=== PATIENT | female | born 1950 | race American Indian/Alaskan Native ===

== ENCOUNTER 2019-06-09 07:07 | Day surgery (SDC) | payer MEDICARE ==
[2019-06-09] MEDS ORDERED: ceFAZolin/Water 2 GM/20 ML 2 GM/20 ML SYRINGE IV NR (08:00)
[2019-06-09 08:05] LABS: INR 0.93 (0.87-1.13); Partial Thromboplastin Time 27.9 Sec. (24.2-36.6)
[2019-06-09 08:10] LABS: Alanine Aminotransferase 19 units/L (7-56); Albumin 3.8 g/dL (3.9-5); BUN/Creatinine Ratio 20; Blood Urea Nitrogen 16 mg/dL (7-17); Calcium 9.4 mg/dL (8.4-10.2); Hemolysis Index 2
[2019-06-09 09:12] LABS: Hematocrit 33.5 % (30.3-42.9); Hemoglobin 10.8 gm/dl (10.1-14.3); Mean Corpuscular Volume 88 fl (79-97); Red Blood Count 3.82 M/mm3 (3.65-5.03)
[2019-06-09 09:13] LABS: Basophils # (Auto) 0.1 K/mm3 (0.0-0.1); Basophils % (Auto) 0.4 % (0.0-1.8); Eosinophils # (Auto) 0.3 K/mm3 (0.0-0.4); Eosinophils % (Auto) 2.1 % (0.0-4.3); Lymphocytes # (Auto) 1.6 K/mm3 (1.2-5.4); Lymphocytes % (Auto) 10.8 % (13.4-35.0); Mean Corpuscular HGB Conc 32 % (30-34); Monocytes # (Auto) 0.9 K/mm3 (0.0-0.8); Monocytes % (Auto) 5.8 % (0.0-7.3); Platelet Count 261 K/mm3 (140-440); Red Cell Distribution Width 13.9 % (13.2-15.2)
[2019-06-09] MEDS ORDERED: HEPARIN/NS 5000 UNIT/500ML 1,000 ML IR ONE ×2 (09:15→13:13)
[2019-06-09] MEDS ORDERED: ceFAZolin/Water 2 GM/20 ML 2 GM/20 ML SYRINGE IV ONE (09:15)
[2019-06-09] MEDS ORDERED: SODIUM CHLORIDE 0.9% 500 ML 500 ML IV SCH (09:30)
[2019-06-09] MEDS: fentaNYL 100 MCG/2 ML INJ ONE ×6 (10:13→12:46)
[2019-06-09] MEDS: MIDAZOLAM 2 MG/2 ML INJ ONE ×6 (10:13→12:46)
[2019-06-09] MEDS: LIDOCAINE (2%) 20 MG/1 ML VIAL 20 ML MDV INFILTRATI ONE ×2 (10:18→11:07)
[2019-06-09] MEDS: HEPARIN 10,000 UNITS/10 ML VIAL ONE ×5 (10:55→13:30)
[2019-06-09] MEDS ORDERED: VERAPAMIL 5 MG/2 ML INJ ONE (12:19)
[2019-06-09] MEDS ORDERED: HEPARIN 10,000 UNITS/10 ML VIAL ONE (12:19)
[2019-06-09] MEDS ORDERED: NITROGLYCERIN SYRINGE 3 ML ONE (12:20)
[2019-06-09] MEDS ORDERED: SODIUM CHLORIDE 0.9% 100 ML ONE (12:50)
[2019-06-09] MEDS ORDERED: ALTEPLASE 2 MG INJ ONE (12:50)
[2019-06-09] MEDS ORDERED: HEPARIN/NS 5000 UNIT/500ML 500 ML IR ONE (12:56)
[2019-06-09] MEDS ORDERED: hydrALAZINE 20 MG/1 ML INJ ONE (13:15)
[2019-06-09] MEDS ORDERED: SODIUM CHLORIDE 0.9% 500 ML 500 ML ONE (13:19)
[2019-06-09] MEDS: ONDANSETRON 4 MG/2 ML INJ ONE ×2 (13:54→13:55)
[2019-06-09] MEDS ORDERED: HYDROcodone/ACETAMINOPHEN 5-325 MG TAB PO PRN (16:03)
[2019-06-09] MEDS ORDERED: ONDANSETRON 4 MG/2 ML INJ IV PRN (16:03)
[2019-06-09] MEDS ORDERED: APIXABAN 2.5 MG TAB PO SCH (16:05)
--- NOTE | 2019-06-09 16:12 | Short Stay Summary ---
Short Stay Documentation Date of service: 06/09/19 Narrative H&P: See H&P - History H&P: obtained from office - Allergies and Medications Current Medications: Allergies No Known Allergies Allergy (Unverified 06/08/19 14:39) Home Medications Medication Instructions Recorded Confirmed Last Taken Type Aspirin [Adult Low Dose Aspirin EC] 81 mg PO QDAY 04/08/16 06/09/19 06/07/19 History Gabapentin 300 mg PO TID 04/08/16 06/08/19 06/08/19 History Latanoprost 1 drop OU QHS 04/08/16 06/08/19 06/08/19 History glipiZIDE [glipiZIDE XL] 10 mg PO QDAY 04/08/16 06/08/19 06/08/19 History Losartan [Cozaar] 100 mg PO HS #30 tablet 04/24/16 06/08/19 06/08/19 Rx Atorvastatin Calcium [Lipitor] 80 mg PO QHS 06/08/19 06/08/19 06/08/19 History Brimonidine 0.15% [Alphagan P 1 drops OU DAILY 06/08/19 06/08/19 06/08/19 History 0.15%] Metformin HCl [Metformin HCl ER] 500 mg PO BID 06/08/19 06/09/19 06/07/19 History tiZANidine [Zanaflex 4mg TAB] 4 mg PO DAILY 06/08/19 06/08/19 06/08/19 History traMADol [Ultram 50 MG tab] 50 mg PO Q4H PRN 06/08/19 06/08/19 06/08/19 History Active Medications Acetaminophen/Hydrocodone Bitart ([place] 5/325) 1 each PO Q4H PRN PRN Reason: Pain, Moderate (4-6) Apixaban (Eliquis) 2.5 mg PO Q12HR TIMOTHY; Protocol Cefazolin Sodium (Ancef/Sterile Water 2 Gm/20 Ml) 2 gm in 20 mls @ 80 mls/hr IV PREOP NR; Protocol Stop: 06/09/19 23:00 Sodium Chloride (Nacl 0.9% 500 Ml) 500 mls @ 50 mls/hr IV DIRECT TIMOTHY Ondansetron HCl (Zofran) 4 mg IV Q8H PRN PRN Reason: Nausea And Vomiting - Brief post op/procedure progress note Date of procedure: 06/09/19 Pre-op diagnosis: 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 Ultrasound-Guided Access Right Common Femoral Artery 2. Ultrasound-Guided Access Left Radial Artery 3. Percutaneous Pharmaco-Mechanical Thrombectomy Of Left Common Iliac Artery with AngioJet With Pulse [place] of 20 Mg of TPA and Aspiration 4. Percutaneous Pharmaco-Mechanical Thrombectomy Of Left External Iliac Artery with AngioJet With Pulse [place] of 20 Mg of TPA and Aspiration 5. Percutaneous Pharmaco-Mechanical Thrombectomy Of Left Common Femoral Artery with AngioJet With Pulse [place] of 20 Mg of TPA and Aspiration 6. Angioplasty of Left External Iliac Artery with 5 x 220 Darryl Balloon 7. Angioplasty and Stent of Left Common Iliac Artery with 8 x 37 and (2) 8 x 27 Visipro Balloon Expandable Stents 8. Closure of Right Femoral Arteriotomy with 6 [place] Angio-Seal 9. Radiologic Supervision with Interpretation Anesthesia: local, other (Monitored Moderate Sedation) Surgeon: SMILEY SYKES Estimated blood loss: minimal Pathology: none Condition: stable - Disposition Condition at discharge: Good Disposition: DC-01 TO HOME OR SELFCARE Short Stay Discharge Plan Activity: no restrictions Wound: remove dressing (24 hours) Follow up with: SMILEY SYKES MD [Staff Physician] - 14 Days Prescriptions: Apixaban [Eliquis] 0 mg PO BID #60 tablet HYDROcodone/APAP 7.5-325 [[place] 7.5/325] 1 each PO Q6HR PRN #20 tablet PRN Reason: Pain
[2019-06-09] MEDS ORDERED: MORPHINE 2 MG/1 ML INJ IV ONE (16:18)
[2019-06-09] MEDS ORDERED: MORPHINE 2 MG/1 ML INJ ONE (16:19)
--- NOTE | 2019-06-09 16:24 | Operative Report ---
Operative Report Operative Report: Date of Procedure: 06/09/2019 Pre-operative Diagnosis: Thrombosis of Left Iliac Artery with Left Above-Knee A mputation Rest Pain Post-operative Diagnosis: Same Procedure(s): 1. Ultrasound-Guided Access Right Common Femoral Artery 2. Ultrasound-Guided Access Left Radial Artery 3. Percutaneous Pharmaco-Mechanical Thrombectomy Of Left Common Iliac Artery with AngioJet With Pulse [place] of 20 Mg of TPA and Aspiration 4. Percutaneous Pharmaco-Mechanical Thrombectomy Of Left External Iliac Artery with AngioJet With Pulse [place] of 20 Mg of TPA and Aspiration 5. Percutaneous Pharmaco-Mechanical Thrombectomy Of Left Common Femoral Artery with AngioJet With Pulse [place] of 20 Mg of TPA and Aspiration 6. Angioplasty of Left External Iliac Artery with 5 x 220 Darryl Balloon 7. Angioplasty and Stent of Left Common Iliac Artery with 8 x 37 and (2) 8 x 27 Visipro Balloon Expandable Stents 8. Closure of Right Femoral Arteriotomy with 6 [place] Angio-Seal 9. Radiologic Supervision with Interpretation Surgeon: John Trivedi M.D. Material Reprocessing Associate: None Anesthesia: Local and IV Sedation EBL: Minimal Counts: Correct Complications: None Condition: Stable Specimen: None Indication: The patient is a 69-year-old female with a history of peripheral vascular disease and bilateral above-knee amputations who had a left common iliac artery to left profunda artery bypass performed at an outside facility. The bypass thrombosed and the thrombus propagated up to her common iliac artery occluding the common iliac artery as well as the hypogastric and the external iliac artery. She developed severe left stump rest pain and is in need of intervention to improve flow to the stump. She was given the risks, benefits, and alternative procedures and consented to the procedure. Angiographic Findings: The left common iliac had a small stump of flow. There was no reconstitution of flow noted in the iliac system. The left common femoral artery was chronically occluded and there was no reconstitution flow noted in the profunda artery. After intervention the left common iliac artery was patent with approximately 20% residual stenosis. There was thrombus noted to have herniated up into the aorta just above the left common iliac artery. The left hypogastric artery was patent with a significant amount of residual thrombus however there was collateral flow that filled the profunda artery branches that had previously been used as the outflow for the bypass. Description of Procedure: The patient was brought to the laborer pipelines and laid in supine position. After a timeout was performed her right groin was prepped and draped in normal sterile fashion. Ultrasound was used to identify the right common femoral artery and confirmed patency. Once patency was confirmed the overlying skin and soft tissue was anesthetized with lidocaine. A small stab incision was created with an 11 blade and micropuncture technique was used with ultrasound guidance to the right common femoral artery. I was unable to exchange the micropuncture sheath for a 5 [place] sheath so I placed a 0.018 V18 wire and then placed a 5/6 Terumo Sheath and then advanced an Omni flush catheter and Bentson wire into the aorta. I performed an aortogram demonstrating the occluded left common iliac artery. I attempted with a combination of multiple catheters and wires to cannulate and cross the occluded iliac without success so I decided to attempt to access her previous bypasses in her left thigh. I attempted to use ultrasound to access the patient's occluded femoropopliteal bypass graft without success. I also attempted to access with ultrasound guidance her previous SFA stents in hopes of advancing wires retrograde through the common femoral artery to rebuild her common femoral artery and also this was unsuccessful. Since the retrograde attempt was unsuccessful I decided to access her left radial artery in hopes of crossing the occluded iliac in an antegrade approach. The left wrist was then prepped and draped in normal sterile fashion ultrasound was used to identify the left radial artery and confirmed patency. The overlying skin and soft tissue was then anesthetized with lidocaine and micropuncture technique was used access the radial artery. A 6 [place] sheath was then placed by Seldinger technique. A glide catheter and 0.035 advantage wire were used to cannulate the descending aorta and advanced into the abdominal aorta. The left common iliac artery was cannulated in the catheter and wire were advanced through the occluded left common iliac artery and into the occluded left common femoral artery. This was confirmed with arteriogram. I exchanged the advantage wire for the V 18 wire and then performed angioplasty of the left external iliac artery and common iliac artery with a 5 x 220 balloon. After performing angioplasty I used the Omni Flush catheter and a 0.035 stiff Glidewire, from the right common femoral approach to advance up and over the bifurcation and advanced the catheter and wire into the right common femoral artery. I then exchanged my sheath for a 6 [place] 45 cm destination sheath. I then used a AngioJet catheter with 100 mL of heparinized saline and 20 mg of TPA to lace the left common iliac, external iliac, and common femoral artery with the solution and allowed it to dwell for 25 minutes. After 25 minutes I performed percutaneous mechanical thrombectomy with the AngioJet catheter. The follow-up angiogram revealed that the common iliac artery was patent with approximately 60% stenosis but minimal residual thrombus. There was significant thrombus within the hypogastric however there was obvious collateral flow into the profunda branches supplying the thigh. There was flow into the external iliac artery and common femoral artery however they did not appear to have a clear connection with the profunda artery. I decided that the best treatment option was to treat the common iliac artery and placed the patient on anticoagulation hopes of optimizing the flow into the hypogastric artery which was providing collateral flow into the profunda artery. I used a 8 x 37 followed by (2) 8 x 27 Visipro Balloon Expandable Stents to treat the entire left common iliac artery with a result of less than 20% residual stenosis. There was an obvious thrombus plug that herniated out of the common iliac artery into the distal aorta just above the left common iliac artery however the patient was nauseated and vomiting at this time and I felt t hat it was safer to abort the procedure and place her on anticoagulation rather than continue trying to [place] the thrombus. I advanced the wire into the aorta and used a 6 [place] Angio-Seal for closure of the right femoral arteriotomy after removing the destination sheath. The patient tolerated the procedure well and was transported to the recovery area in stable condition.
[2019-06-09 17:38] VITALS: BP 152/56
== END 2019-06-09 19:00 | disposition home or self-care (01) ==
LOC: CATHLABREC 07:07
PROVIDERS: ATTEND Surgery Vascular Surgery
DX: I74.5 Embolism and thrombosis of iliac artery (principal); E11.51 Type 2 diabetes mellitus with diabetic peripheral angiopathy without gangrene; I70.213 Atherosclerosis of native arteries of extremities with intermittent claudication, bilateral legs; I10 Essential (primary) hypertension; F32.9 Major depressive disorder, single episode, unspecified; I25.10 Atherosclerotic heart disease of native coronary artery without angina pectoris; E78.00 Pure hypercholesterolemia, unspecified; K21.9 Gastro-esophageal reflux disease without esophagitis; M19.90 Unspecified osteoarthritis, unspecified site; F41.9 Anxiety disorder, unspecified; Z85.3 Personal history of malignant neoplasm of breast; Z90.11 Acquired absence of right breast and nipple; Z83.3 Family history of diabetes mellitus; Z98.890 Other specified postprocedural states; Z98.42 Cataract extraction status, left eye; Z79.899 Other long term (current) drug therapy; Z79.82 Long term (current) use of aspirin; Z79.84 Long term (current) use of oral hypoglycemic drugs; Z87.891 Personal history of nicotine dependence; Z95.820 Peripheral vascular angioplasty status with implants and grafts; Z89.611 Acquired absence of right leg above knee; Z89.612 Acquired absence of left leg above knee; Z82.49 Family history of ischemic heart disease and other diseases of the circulatory system
CPT/HCPCS: 36415; 37184; 37185; 37221; 76937; 80053; 82962; 85025; 85610; 85730; 96374; 99156; 99157; C1725; C1757; C1760; C1769; C1876; C1887; C1894; J0360; J0690; J1644; J2250; J2270; J2405; J2997; J3010; J7040; 37220; 37226; Q9967

== ENCOUNTER 2019-06-09 23:00 | Inpatient (IN) | payer MEDICARE ==
[2019-06-09] MEDS ORDERED: ONDANSETRON 4 MG/2 ML INJ IV ONE (23:29)
[2019-06-09] MEDS ORDERED: HYDROmorphone 1 MG/1 ML INJ IV ONE (23:29)
--- NOTE | 2019-06-09 23:38 | Emergency Department Report ---
ED Extremity Problem HPI - General Chief complaint: Medical Clearance Stated complaint: PAIN IN LEGS Time Seen by Provider: 06/09/19 23:17 Source: patient, EMS Mode of arrival: Stretcher Limitations: Physical Limitation - History of Present Illness Initial comments: 69-year-old female with a past medical history of PAD and bilateral BKA presents to the hospital complaining of pain left leg. Patient was here earlier today for outpatient vascular procedure. She had a preop diagnosis acute thrombosis of the left iliac arteries with left AKA stump pain. She received mechanical thrombectomy and angioplasty with stents of the left common iliac and external iliac arteries. Right femoral artery was cannulated procedure. Patient was discharged at 5 PM. At 6 PM started to complain of severe pain deep in the left leg. She has not yet filled her described [place] 7.5 mg for pain. Vascular: Dr Trivedi Severity scale (0 -10): 8 - Related Data Home Medications Medication Instructions Recorded Confirmed Last Taken Aspirin [Adult Low Dose Aspirin EC] 81 mg PO QDAY 04/08/16 06/09/19 06/07/19 Gabapentin 300 mg PO TID 04/08/16 06/08/19 06/08/19 Latanoprost 1 drop OU QHS 04/08/16 06/08/19 06/08/19 glipiZIDE [glipiZIDE XL] 10 mg PO QDAY 04/08/16 06/08/19 06/08/19 Atorvastatin Calcium [Lipitor] 80 mg PO QHS 06/08/19 06/08/19 06/08/19 Brimonidine 0.15% [Alphagan P 1 drops OU DAILY 06/08/19 06/08/19 06/08/19 0.15%] Metformin HCl [Metformin HCl ER] 500 mg PO BID 06/08/19 06/09/19 06/07/19 tiZANidine [Zanaflex 4mg TAB] 4 mg PO DAILY 06/08/19 06/08/19 06/08/19 traMADol [Ultram 50 MG tab] 50 mg PO Q4H PRN 06/08/19 06/08/19 06/08/19 Previous Rx's Medication Instructions Recorded Last Taken Type Losartan [Cozaar] 100 mg PO HS #30 tablet 04/24/16 06/08/19 Rx Apixaban [Eliquis] 0 mg PO BID #60 tablet 06/09/19 Unknown Rx HYDROcodone/APAP 7.5-325 [[place] 1 each PO Q6HR PRN #20 tablet 06/09/19 Unknown Rx 7.5/325] Allergies Allergy/AdvReac Type Severity Reaction Status Date / Time No Known Allergies Allergy Unverified 06/08/19 14:39 ED Review of Systems ROS: Stated complaint: PAIN IN LEGS Other details as noted in HPI Comment: All other systems reviewed and negative ED Past Medical Hx - Past Medical History Hx Hypertension: Yes Hx Heart Attack/AMI: No Hx Diabetes: Yes Hx Arthritis: Yes Hx HIV: No - Surgical History Hx Coronary Stent: No Hx Open Heart Surgery: No Hx Pacemaker: No Hx Cholecystectomy: No Hx Appendectomy: No Hx Breast Surgery: No Additional Surgical History: left a.b.a - Social History Smoking Status: Former Smoker - Medications Home Medications: Home Medications Medication Instructions Recorded Confirmed Last Taken Type Aspirin [Adult Low Dose Aspirin EC] 81 mg PO QDAY 04/08/16 06/09/19 06/07/19 History Gabapentin 300 mg PO TID 04/08/16 06/08/19 06/08/19 History Latanoprost 1 drop OU QHS 04/08/16 06/08/19 06/08/19 History glipiZIDE [glipiZIDE XL] 10 mg PO QDAY 04/08/16 06/08/19 06/08/19 History Losartan [Cozaar] 100 mg PO HS #30 tablet 04/24/16 06/08/19 06/08/19 Rx Atorvastatin Calcium [Lipitor] 80 mg PO QHS 06/08/19 06/08/19 06/08/19 History Brimonidine 0.15% [Alphagan P 1 drops OU DAILY 06/08/19 06/08/19 06/08/19 History 0.15%] Metformin HCl [Metformin HCl ER] 500 mg PO BID 06/08/19 06/09/19 06/07/19 History tiZANidine [Zanaflex 4mg TAB] 4 mg PO DAILY 06/08/19 06/08/19 06/08/19 History traMADol [Ultram 50 MG tab] 50 mg PO Q4H PRN 06/08/19 06/08/19 06/08/19 History Apixaban [Eliquis] 0 mg PO BID #60 tablet 06/09/19 Unknown Rx HYDROcodone/APAP 7.5-325 [[place] 1 each PO Q6HR PRN #20 tablet 06/09/19 Unknown Rx 7.5/325] ED Physical Exam - General Limitations: Physical Limitation - Other Other exam information: General: Distress secondary to pain difficult to obtain a history of present illness Head: Atraumatic Eyes: normal appearance ENT: Moist mucous membranes Neck: Normal appearance, no midline tenderness Chest: Clear to auscultation bilaterally CV: Regular rate and rhythm, able to auscultate left femoral pulse, faintly palpable Abdomen: Soft, normal bowel sounds, nontender, nondistended, no rebound or guarding Back: Normal inspection Extremity: Bilateral AKA. Left leg dressing removed. Blood clotted dressing noted without active bleeding. Neuro: Alert O x 3, no facial asymmetry, speech clear, no gross motor sensory deficit Psych: Appropriate behavior Skin: No rash ED Course Vital Signs 06/09/19 06/09/19 06/09/19 23:19 23:22 23:44 Temperature Pulse Rate 94 H 89 Respiratory 15 17 Rate Blood Pressure 165/65 Blood Pressure 165/65 [Right] O2 Sat by Pulse 95 98 Oximetry 06/10/19 06/10/19 06/10/19 00:12 02:11 03:48 Temperature 97.8 F Pulse Rate 83 90 88 Respiratory 19 18 15 Rate Blood Pressure Blood Pressure 197/69 203/57 160/46 [Right] O2 Sat by Pulse 100 97 97 Oximetry - Reevaluation(s) Reevaluation #1: 06/10/19 04:45 Is resting comfortably after receiving Dilaudid. Blood pressure also improved with labetalol. - Consultations Consultation #1: 06/10/19 04:[address] Garcia. He recommends admitting the patient. Recommends heparin drip. Nothing by mouth except for meds. They will assess patient today with possible procedure tomorrow. ED Medical Decision Making - Lab Data Result diagrams: 06/09/19 23:31 06/09/19 23:31 - Radiology Data Radiology results: report reviewed CTA PELVIS AND LEFT LOWER EXTREMITY WITH IV CONTRAST INDICATION: Postop left lower extremity angioplasty CONTRAST: 100 cc Omnipaque 350 IV COMPARISON: None available. Three-plane MIP reconstructions were produced. All CT scans at this location are performed using CT dose reduction for ALARA by means of automated exposure control. FINDINGS: Images were obtained from the mid abdominal level to the mid to lower thigh level but exclude the right abdomen and pelvis. Above the knee amputation is noted. Small probable cysts are seen in the left kidney. Left kidney appears moderately atrophic. Only a small portion of the right kidney is seen but there appears to be compensatory hypertrophy. Large amount of stool is seen in the rectum consistent with rectal impaction. No proximal obstructive change is seen. Old left lower quadrant ostomy sites are noted. No free fluid is seen. Calcified uterine leiomyoma is seen. No lymphadenopathy is noted. No intrapelvic inflammatory changes are seen. No free fluid is seen within the pelvis. Moderate stranding is seen in the left inguinal area extending inferiorly probably related to recent procedure but I do not see a defined hematoma. No evidence of hemorrhage within the pelvis is seen. Atherosclerotic changes are seen in the visualized portions of the abdominal aorta without aneurysmal dilatation, significant aortic stenosis, or evidence of dissection. Superior mesenteric artery opacifies well without obvious stenosis. Renal arteries show no obvious stenoses with only mild atherosclerotic change. A small inferior mesenteric artery opacifies. The proximal to mid portions of the right common iliac arteries show atherosclerotic changes without significant stenosis or aneurysmal dilatation. A distal right common iliac stent graft is noted with flow seen. Opacification of the right internal iliac artery is noted. There appears to be significant stenosis of the right external iliac artery at approximately 50-60% but flow is seen distally in the visualized portions with only mild irregularity more distally. A left common iliac stent graft is noted. The extreme proximal portions of this graft show only a trace of flow over a segment of approximately 12 mm but then the graft is well opacified. Flow is seen well in the internal iliac system on the left. The [place] left external iliac artery shows prominent in length the stenosis with multiple areas of sev ere narrowing and one area in the upper to midportion without discernible flow for a short segment. A bypass graft is noted extending from the distal portion of the common iliac stent graft which shows moderate amount of flow but also in the distal portion of the external iliac segment shows prominent length the stenosis of approximately 80%. In the common femoral region another stent graft is seen which shows no discernible flow and this continues to the distal portion of the thigh without obvious flow seen. A vein graft is seen running laterally also does not show definite flow. Branches of the deep femoral artery do show opacification to the distal thigh. I do not see obvious extravasation. IMPRESSION: 1. Probable thrombus is seen in the upper portion of the left common iliac stent graft though flow is seen well just beyond this area 2. Marked abnormality is seen of the [place] left external iliac artery though flow is seen distally. 3. The left external iliac bypass shows flow but prominent length the stenosis/thrombosis 4. The lateral I vein graft shows no definite flow 5. Left s uperficial femoral artery stent graft shows no obvious flow 6. Flow is seen in branches of the deep femoral artery to the distal thigh soft tissues 7. No obvious extravasation of contrast is seen and no obvious pseudoaneurysm is noted 8. Stenotic abnormalities in the right iliac system as above - Medical Decision Making CTA reviewed by vascular surgeon. Admission recommended and heparin drip. Case discussed with hospitalist. Pain improved after Dilaudid. Hypertension improved after labetalol by mouth. MIld hyperglycemia persist despite insulin. Pt hydrated with 500 mL of normal saline given mild increase in creatinine. - Differential Diagnosis postop hematoma, postop pain, graft or arterial occlusion Critical Care Time: No Critical care attestation.: If time is entered above; I have spent that time in minutes in the direct care of this critically ill patient, excluding procedure time. ED Disposition Clinical Impression: Atherosclerosis of [place] arteries of the extremities with rest pain, S/P AKA (above knee amputation) bilateral, Iliac artery thrombosis, left, S/P peripheral artery angioplasty with stent placement, Intractable pain, Increase in serum creatinine from prior measurement Disposition: OP ADMIT IP TO THIS HOSP Is pt being admited?: Yes Condition: Stable Time of Disposition: 04:48 (Dr Burleson/hosp)
[2019-06-09 23:47] LABS: Basophils # (Auto) 0.1 K/mm3 (0.0-0.1); Basophils % (Auto) 0.3 % (0.0-1.8); Hematocrit 25.1 % (30.3-42.9); Hemoglobin 8.5 gm/dl (10.1-14.3); Lymphocytes # (Auto) 1.5 K/mm3 (1.2-5.4); Lymphocytes % (Auto) 8.8 % (13.4-35.0); Mean Corpuscular HGB Conc 34 % (30-34); Mean Corpuscular Volume 87 fl (79-97); Monocytes # (Auto) 0.9 K/mm3 (0.0-0.8); Monocytes % (Auto) 5.4 % (0.0-7.3); Platelet Count 282 K/mm3 (140-440); Red Blood Count 2.87 M/mm3 (3.65-5.03)
[2019-06-10 00:02] LABS: INR 1.19 (0.87-1.13); Partial Thromboplastin Time 35.9 Sec. (24.2-36.6)
[2019-06-10 00:10] LABS: Calcium 9.1 mg/dL (8.4-10.2)
[2019-06-10] MEDS ORDERED: INSULIN REGULAR, HUMAN 100 UNITS/1 ML IV ONE (00:34)
[2019-06-10] MEDS ORDERED: SODIUM CHLORIDE 0.9% 500 ML 500 ML IV ONE (01:00)
[2019-06-10] MEDS ORDERED: LABETALOL 100 MG TAB PO ONE (02:14)
--- NOTE | 2019-06-10 03:50 | Cat Scan Report ---
CTA PELVIS AND LEFT LOWER EXTREMITY WITH IV CONTRAST INDICATION: Postop left lower extremity angioplasty CONTRAST: 100 cc Omnipaque 350 IV COMPARISON: None available. Three-plane MIP reconstructions were produced. All CT scans at this location are performed using CT d ose reduction for 3D Product Imaging by means of automated exposure control. FINDINGS: Images were obtained from the mid abdominal level to the mid to lower thigh level but exclu de the right abdomen and pelvis. Above the knee amputation is noted. Small probable cysts are seen in the left kidney. Left kidney appears moderately atrophic. Only a sma ll portion of the right kidney is seen but there appears to be compensatory hypertrophy. Large amount of stool is seen in the rectum consistent with rectal impaction. No proximal obstructive change is s een. Old left lower quadrant ostomy sites are noted. No free fluid is seen. Calcified uterine leiomyo ma is seen. No lymphadenopathy is noted. No intrapelvic inflammatory changes are seen. No free fluid is seen within the pelvis. Moderate stranding is seen in the left inguinal area extending inferiorly probably related to recent procedure but I do not see a defined hematoma. No evidence of hemorrhage w ithin the pelvis is seen. Atherosclerotic changes are seen in the visualized portions of the abdominal aorta without aneurysmal dilatation, significant aortic stenosis, or evidence of dissection. Superior mesenteric artery opaci fies well without obvious stenosis. Renal arteries show no obvious stenoses with only mild atheroscle rotic change. A small inferior mesenteric artery opacifies. The proximal to mid portions of the right common iliac arteries show atherosclerotic changes without significant stenosis or aneurysmal dilatation. A distal right common iliac stent graft is noted with flow seen. Opacification of the right internal iliac artery is noted. There appears to be significant stenosis of the right external iliac artery at approximately 50-60% but flow is seen distally in the visualized portions with only mild irregularity more distally. A left common iliac stent graft is noted. The extreme proximal portions of this graft show only a tra ce of flow over a segment of approximately 12 mm but then the graft is well opacified. Flow is seen w ell in the internal iliac system on the left. [place] left external iliac artery shows prominent i n length the stenosis with multiple areas of severe narrowing and one area in the upper to midportion without discernible flow for a short segment. A bypass graft is noted extending from the distal port ion of the common iliac stent graft which shows moderate amount of flow but also in the distal portio n of the external iliac segment shows prominent length the stenosis of approximately 80%. In the comm on femoral region another stent graft is seen which shows no discernible flow and this continues to t he distal portion of the thigh without obvious flow seen. A vein graft is seen running laterally also does not show definite flow. Branches of the deep femoral artery do show opacification to the distal thigh. I do not see obvious extravasation. IMPRESSION: 1. Probable thrombus is seen in the upper portion of the left common iliac stent graft though flow is seen well just beyond this area 2. Marked abnormality is seen of the [place] left external iliac artery though flow is seen distally. 3. The left external iliac bypass shows flow but prominent length the stenosis/thrombosis 4. The lateral I vein graft shows no definite flow 5. Left superficial femoral artery stent graft shows no obvious flow 6. Flow is seen in branches of the deep femoral artery to the distal thigh soft tissues 7. No obvious extravasation of contrast is seen and no obvious pseudoaneurysm is noted 8. Stenotic abnormalities in the right iliac system as above Signer Name: Laci Cosme MD Signed: 06/10/2019 3:45 AM Workstation Name: [id number]
--- NOTE | 2019-06-10 04:46 | Event Note ---
Date: 06/10/[address] Andino about Danisha Miranda. 69 year old female who underwent thrombectomy of the left lower extremity iliac arterial system earlier today who was discharged but then represented in 05/20 pain left stump pain (AKA). CTA angiogram was performed by the ER which demonstrated occlusion of the left proximal common iliac artery with occlusion of the left femoral system and occlusion of the left lower extremity bypass. The bypass and femoral system was chronically occluded and the left iliac system had minimal flow previously, rec ently spontaneously occluded, the patient had a thrombectomy of the iliac system earlier today. At the conclusion of the procedure the left proximal iliac artery was patent, but it is now occluded. There is definitely a chronic component to this pain. The patient may need to be admitted for pain control and I recommend initiation of a heparin drip. May consider another attempt at iliac thrombectomy of the left iliac system, but this may be futile. Since patient has had multiple contrast boluses, she will need hydration to monitor for KATHERINE. Will reassess in AM.
[2019-06-10] MEDS ORDERED: HEPARIN 10,000 UNITS/10 ML VIAL IV ONE (04:52)
[2019-06-10] MEDS ORDERED: HEPARIN/ 0.45% NACL DRIP 25,000 UNIT/500 ML BAG IV SCH (05:00)
[2019-06-10] MEDS ORDERED: ONDANSETRON 4 MG/2 ML INJ IV PRN (05:41)
[2019-06-10] MEDS ORDERED: ACETAMINOPHEN 650 MG RECT SUPP PR PRN (05:42)
[2019-06-10] MEDS ORDERED: DEXTROSE 50% IN WATER (25GM) 50 ML SYRINGE IV PRN (05:44)
[2019-06-10] MEDS: INSULIN REGULAR, HUMAN 100 UNITS/1 ML SUB-Q SCH ×4 (06:56→18:05)
[2019-06-10] MEDS: HYDROmorphone 1 MG/1 ML INJ IV PRN ×2 (06:59→11:43)
--- NOTE | 2019-06-10 08:49 | Event Note ---
Date: 06/10/19 Obtain STAT labs to evaluate renal function, considering contrast. If worse will need renal consult. Bolus of fluids Sodium bicarb considering Metabolic acidosis Insulin administration discussed with Nursing
--- NOTE | 2019-06-10 09:40 | History and Physical Report ---
CHIEF COMPLAINT: Pain in the left lower extremity. HISTORY OF PRESENTING ILLNESS: The patient is a 69-year-old female who had a procedure done in the left lower extremity about 24-48 hours ago in this hospital, patient had a stent placed by the [facility] and was discharged home, but came back with increased pain in the left lower extremity. There was no history of trauma, and the patient denied history of nausea or vomiting and denied history of fever and presented to the Emergency Room and had a CT angiogram of the lower extremity done that shows evidence of thrombosis in the left lower extremity around where the procedure was done. [facility] was consulted and they requested that the patient be admitted and kept n.p.o. and be placed on heparin drip, pending evaluation. PAST MEDICAL HISTORY: Pertinent for hypertension, diabetes mellitus, arthritis. PAST SURGICAL HISTORY: Pertinent for left above-knee amputation. FAMILY HISTORY: Noncontributory. SOCIAL HISTORY: The patient is a former cigarette smoker. Does not smoke anymore and does not use illicit drug. MEDICATIONS: The patient is on aspirin 81 mg by mouth daily, gabapentin 300 mg by mouth t.i.d., latanoprost eyedrop 1 drop to the right eye every night, glipizide 10 mg by mouth daily, Cozaar 100 mg by mouth at bedtime, Lipitor 80 mg by mouth at bedtime, Alphagan eyedrops 0.15% 1 drop to the right eye daily, metformin 500 mg by mouth twice daily, Zanaflex 4 mg by mouth daily, Ultram 50 mg by mouth every 4 hours as needed for pain, Eliquis twice daily, dose unknown and [place] 7.5/325 mg 1 by mouth every 6 hours as needed for pain. ALLERGIES: There are no known drug allergies. REVIEW OF SYSTEMS: CONSTITUTIONAL: There is no fever, no chills, no diaphoresis. HEENT: There is no headache or sore throat. CARDIOVASCULAR SYSTEM: There is no chest pain or orthopnea. RESPIRATORY SYSTEM: There is no shortness of breath or cough. GASTROINTESTINAL SYSTEM: There is no nausea, no vomiting, no abdominal pain, diarrhea or constipation. NEUROLOGICAL SYSTEM: There is no numbness, no dizziness, no altered mental status. MUSCULOSKELETAL SYSTEM: There is pain in the left lower extremity, but no joint swelling. DERMATOLOGICAL SYSTEM: There is no skin rash or itching. GENITOURINARY SYSTEM: There is no dysuria, hematuria, or flank pain. Rest of system review is normal. PHYSICAL EXAMINATION: GENERAL: At the time of exam, the patient was found to be lethargic, but arousable and not in acute distress. VITAL SIGNS: At the initial time of presentation show normal temperature with pulse of 94, respirations 15, blood pressure 105/65, O2 sat of 95% on room air. HEENT: Showed pupils to be equal, round, reactive to light and accommodating. Extraocular muscles are intact. NECK: Supple with no JVD or carotid bruit. CARDIOVASCULAR SYSTEM: Showed normal first and second heart sounds with no gallops or murmurs. RESPIRATORY SYSTEM: Showed good air entry on both sides of the lungs with no abnormal breath sounds. GASTROINTESTINAL SYSTEM: Showed abdomen to be full, soft, nontender with no organomegaly or rigidity. NEUROLOGIC: Showed no focal deficit. MUSCULOSKELETAL SYSTEM: Showed that the patient had bilateral above-knee amputation with a procedure done on the left lower extremity and dressing still applied to the left lower extremity where the procedure was done. DERMATOLOGICAL SYSTEM: Showed no skin rash. GENITOURINARY SYSTEM: Showed no costovertebral angle tenderness. PERTINENT LABORATORY AND IMAGING STUDIES: The patient had CT angiogram of the lower extremity done, which shows a probable thrombus in the upper portion of the left common iliac stent graft, although flow is seen just beyond this area according to the radiologist. There is also marked abnormality seen of the [place] left external iliac artery, although flow is seen distally. Also, the radiologist reported the left external iliac bypass showing flow, but prominent length of stenosis and thrombosis. Also, the radiologist said the ____ vein graft shows no definite flow and there is also left superficial femoral artery stent graft showing no obvious flow, and there is no obvious extravasation of contrast seen and no obvious pseudoaneurysm noted. There is stenotic abnormality in the right iliac system, according to the radiologist. Lab results, the patient has CBC done with elevated white count of 17,500, low hemoglobin of 8.5 and low hematocrit of 25.1 with CBC differential showing elevated segmented neutrophil count of 85.5. The patient's coagulation studies were unremarkable. Chemistry showed elevated BUN of 24 and slightly elevated creatinine of 1.3 with high blood glucose level of 323. DIAGNOSES: 1. Left lower extremity thrombus. 2. Left lower extremity pain. 3. Hyperglycemia. PLAN OF CARE: 1. The patient will be admitted to medical/surgical amor. 2. The patient will continue vascular surgical consult with Dr. Popeye Garcia as requested by the Emergency Room physician. 3. The patient will continue IV heparin drip started in the Emergency Room. 4. The patient will be n.p.o. until reviewed by the vascular surgeon. 5. The patient will be on Tylenol 650 mg rectally every 4 hours for fever and headache. 6. The patient will be on IV Dilaudid 1 mg every 4 hours as needed for pain and IV Zofran 4 mg every 8 hours as needed for nausea and vomiting. 7. The patient will be on Accu-Chek every 4 hours followed by low-dose sliding scale using regular insulin coverage. JOB# [id number] OCN/AISHA MTDD
--- NOTE | 2019-06-10 10:13 | Post Operative Note ---
Pre-op diagnosis: ESRD Post-op diagnosis: same Procedure: Left Arm AV Graft Insertion Anesthesia: GETA Surgeon: EVELIN GRANADO Estimated blood loss: other (25ml) Pathology: none Condition: stable Disposition: PACU
[2019-06-10] MEDS ORDERED: SODIUM CHLORIDE 0.9% 1000 ML 1,000 ML IV ONE ×2 (10:30→15:26)
[2019-06-10] MEDS ORDERED: SODIUM BICARB 8.4% 50 MEQ/50 ML SYRINGE IV NR (10:30)
--- NOTE | 2019-06-10 10:33 | Consultation ---
History of Present Illness - Reason for Consult Consult date: 06/10/19 peripheral vascular disease with rest pain - History of Present Illness Patient with a history of bilateral [id number]-[id number] amputations. Yesterday, the patient underwent a percutaneous procedure to open up the left system requiring access from both the right groin, left groin and left wrist. The patient had in-line flow to her profunda at the conclusion of the procedure. Upon discharge, the patient began to experience significant pain along the medial aspect of her left leg at the puncture site. Patient does have subcutaneous bruising. The patient's distal stump demonstrates no rest pain. Since presentation to the hospital, the patient's pain has resolved immediately. CTA was performed which demonstrates a thrombus in the proximal end of the left common iliac artery stent. There is bloodflow distal to this area which extends into branches in the profunda. Minimal amount of fluid is present within the s oft tissues in the left groin. Past History Past Medical History: PVD Past Surgical History: Other (bilateral [id number] amputations, left iliac artery to profunda bypass graft) Social history: no significant social history, lives with family Family history: no significant family history Medications and Allergies Allergies Allergy/AdvReac Type Severity Reaction Status Date / Time No Known Allergies Allergy Unverified 06/08/19 14:39 Home Medications Medication Instructions Recorded Confirmed Last Taken Type Aspirin [Adult Low Dose Aspirin EC] 81 mg PO QDAY 04/08/16 06/10/19 06/07/19 History Gabapentin 300 mg PO TID 04/08/16 06/10/19 06/08/19 History Latanoprost 1 drop OU QHS 04/08/16 06/10/19 06/08/19 History glipiZIDE [glipiZIDE XL] 10 mg PO QDAY 04/08/16 06/10/19 06/08/19 History Losartan [Cozaar] 100 mg PO HS #30 tablet 04/24/16 06/10/19 06/08/19 Rx Atorvastatin Calcium [Lipitor] 80 mg PO QHS 06/08/19 06/10/19 06/08/19 History Brimonidine 0.15% [Alphagan P 1 drops OU DAILY 06/08/19 06/10/19 06/08/19 History 0.15%] Metformin HCl [Metformin HCl ER] 500 mg PO BID 06/08/19 06/10/19 06/07/19 History tiZANidine [Zanaflex 4mg TAB] 4 mg PO DAILY 06/08/19 06/10/19 06/08/19 History traMADol [Ultram 50 MG tab] 50 mg PO Q4H PRN 06/08/19 06/10/19 06/08/19 History Apixaban [Eliquis] 0 mg PO BID #60 tablet 06/09/19 06/10/19 Unknown Rx HYDROcodone/APAP 7.5-325 [[place] 1 each PO Q6HR PRN #20 tablet 06/09/19 06/10/19 Unknown Rx 7.5/325] Active Meds: Active Medications Acetaminophen (Tylenol) 650 mg TN Q4H PRN PRN Reason: Fever >101 Dextrose (D50w (25gm) Syringe) 50 ml IV Q30MIN PRN PRN Reason: Hypoglycemia Hydromorphone HCl (Dilaudid) 1 mg IV Q4H PRN PRN Reason: Pain, Moderate (4-6) Last Admin: 06/10/19 06:59 Dose: 1 mg Documented by: Heparin Sodium/Sodium Chloride (Heparin/ 0.45% Nacl-25,000 Unit/500 Ml) 25,000 unit in 500 mls @ 18 mls/hr IV TITR [facility]; Protocol Last Admin: 06/10/19 05:18 Dose: 900 units/hr, 18 mls/hr Documented by: Sodium Chloride (Nacl 0.9% 1000 Ml) 1,000 mls @ 999 mls/hr IV BOLUS ONE Stop: 06/10/19 11:30 Insulin Human Isoph/Insulin Regular (Humulin 70/30) 12 unit SUB-Q BIDDIAB TIMOTHY Insulin Human Regular (Humulin R) 0 units SUB-Q Q4HR TIMOTHY; Protocol Last Admin: 06/10/19 06:56 Dose: Not Given Documented by: Ondansetron HCl (Zofran) 4 mg IV Q8H PRN PRN Reason: Nausea And Vomiting Sodium Bicarbonate (Sodium Bicarbonate 50meq Syringe) 50 meq IV ONCE NR Stop: 06/10/19 12:00 Review of Systems All systems: negative Exam - Constitutional Vitals: Temp Pulse Resp BP Pulse Ox 99.2 F 83 18 138/46 93 06/10/19 08:08 06/10/19 08:08 06/10/19 08:08 06/10/19 08:08 06/10/19 08:08 General appearance: Present: no acute distress - EENT Eyes: Present: EOM intact ENT: hearing intact - Neck Neck: Present: supple, normal ROM - Respiratory Respiratory effort: normal - Extremities Extremities: abnormal - Abdominal General gastrointestinal: Present: deferred Female genitourinary: Present: deferred - Rectal Rectal Exam: deferred - Psychiatric Psychiatric: appropriate mood/affect, cooperative Results - Labs CBC & Chem 7: 06/09/19 23:31 06/09/19 23:31 Labs: Abnormal lab results 06/09/19 06/09/19 06/09/19 Range/Units 23:31 23:31 23:31 WBC 17.5 H (4.5-11.0) K/mm3 RBC 2.87 L (3.65-5.03) M/mm3 Hgb 8.5 L (10.1-14.3) gm/dl Hct 25.1 L D (30.3-42.9) % Lymph % (Auto) 8.8 L (13.4-35.0) % [place] # 0.9 H (0.0-0.8) K/mm3 Seg Neutrophils % 85.5 H (40.0-70.0) % Seg Neutrophils # 14.9 H (1.8-7.7) K/mm3 PT 15.0 H (12.2-14.9) Sec. INR 1.19 H (0.87-1.13) Carbon Dioxide 16 L (22-30) mmol/L BUN 24 H (7-17) mg/dL Creatinine 1.3 H D (0.7-1.2) mg/dL Glucose 323 H (65-100) mg/dL POC Glucose (70-105) 06/10/19 06/10/19 06/10/19 Range/Units 02:56 08:19 10:20 WBC (4.5-11.0) K/mm3 RBC (3.65-5.03) M/mm3 Hgb (10.1-14.3) gm/dl Hct (30.3-42.9) % Lymph % (Auto) (13.4-35.0) % [place] # (0.0-0.8) K/mm3 Seg Neutrophils % (40.0-70.0) % Seg Neutrophils # (1.8-7.7) K/mm3 PT (12.2-14.9) Sec. INR (0.87-1.13) Carbon Dioxide (22-30) mmol/L BUN (7-17) mg/dL Creatinine (0.7-1.2) mg/dL Glucose (65-100) mg/dL POC Glucose 316 H 334 H 372 H (70-105) - Imaging and Cardiology CT scan - abdomen: image reviewed CT scan - pelvis: image reviewed Assessment and Plan Patient's pain is significantly improved. Patient has recently undergone several interventions in an attempt to restore blood flow. Will allow the patient to eat today, depending on patient's pain, the patient may be eligible for discharge tomorrow.
[2019-06-10] MEDS: INSULIN NPH/REGULAR 70/30 INJ SUB-Q SCH ×2 (11:47→16:13)
[2019-06-10 13:18] LABS: Basophils % (Auto) 0.2 % (0.0-1.8); Eosinophils % (Auto) 0.1 % (0.0-4.3); Hemoglobin 6.4 gm/dl (10.1-14.3); Lymphocytes # (Auto) 1.7 K/mm3 (1.2-5.4); Lymphocytes % (Auto) 13.3 % (13.4-35.0); Mean Corpuscular HGB Conc 33 % (30-34); Mean Corpuscular Volume 87 fl (79-97); Monocytes # (Auto) 0.9 K/mm3 (0.0-0.8); Monocytes % (Auto) 7.3 % (0.0-7.3); Platelet Count 201 K/mm3 (140-440); Red Blood Count 2.24 M/mm3 (3.65-5.03); Red Cell Distribution Width 13.9 % (13.2-15.2)
[2019-06-10] MEDS ORDERED: SODIUM CHLORIDE 0.9% 500 ML 500 ML IV NR (13:23)
[2019-06-10 13:28] LABS: Hematocrit 19.6 % (30.3-42.9)
[2019-06-10 13:41] LABS: Calcium 8.1 mg/dL (8.4-10.2)
[2019-06-10] MEDS ORDERED: INSULIN REGULAR, HUMAN 100 UNITS/1 ML SUB-Q ONE (15:26)
[2019-06-10] MEDS ORDERED: HYDROcodone/ACETAMINOPHEN 7.5-325MG TAB PO PRN (15:57)
[2019-06-10 16:42] LABS: Hemoglobin 6.1 gm/dl (10.1-14.3)
[2019-06-10 16:55] LABS: Hematocrit 18.6 % (30.3-42.9)
[2019-06-10] MEDS: LATANOPROST 0.005% OPHTH SOLN 2.5 ML OU SCH (20:07)
[2019-06-10] MEDS: GABAPENTIN 300 MG CAP PO SCH (21:20)
[2019-06-10] MEDS: traMADol 50 MG TAB PO PRN (21:21)
[2019-06-10] MEDS ORDERED: APIXABAN 2.5 MG TAB PO SCH (22:00)
[2019-06-10] MEDS ORDERED: NON-FORMULARY EACH (Atorvastatin Calcium [Lipitor] 80 MG) PO SCH (22:00)
[2019-06-10] MEDS ORDERED: LOSARTAN 50 MG TAB PO SCH (22:00)
[2019-06-11 05:06] LABS: Hematocrit 22.9 % (30.3-42.9); Hemoglobin 7.6 gm/dl (10.1-14.3); Mean Corpuscular Volume 87 fl (79-97); Red Blood Count 2.62 M/mm3 (3.65-5.03)
[2019-06-11 05:07] LABS: Basophils % (Auto) 0.4 % (0.0-1.8); Eosinophils # (Auto) 0.4 K/mm3 (0.0-0.4); Lymphocytes # (Auto) 2.4 K/mm3 (1.2-5.4); Lymphocytes % (Auto) 20.1 % (13.4-35.0); Mean Corpuscular HGB Conc 33 % (30-34); Monocytes # (Auto) 0.9 K/mm3 (0.0-0.8); Monocytes % (Auto) 7.8 % (0.0-7.3); Platelet Count 170 K/mm3 (140-440); Red Cell Distribution Width 14.1 % (13.2-15.2)
[2019-06-11 05:27] LABS: Calcium 7.9 mg/dL (8.4-10.2)
--- NOTE | 2019-06-11 08:14 | Progress Note ---
Assessment and Plan Assessment and plan: 69-year-old female with a past medical history of PAD and bilateral BKA presents to the hospital complaining of pain left leg. Patient was here earlier today for outpatient vascular procedure. She had a preop diagnosis acute thrombosis of the left iliac arteries with left AKA stump pain. She received mechanical thrombectomy and angioplasty with stents of the left common iliac and external iliac arteries. Right femoral artery was cannulated procedure. Patient was discharged at 5 PM. At 6 PM started to complain of severe pain deep in the left leg. She has not yet filled her described [place] 7.5 mg for pain. Vascular: Dr Trivedi * was started on heparin drip then discontinued due to anemia * patient advised of poor prognostic factors * During the procedure, the patient underwent, lysis as well as aspiration and a component of her decreased hemoglobin may be secondary to hematoma. The patient is sitting up in bed eating breakfast and comfortable * some brusing noted to the site, unsure if the pain is as a result. 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 Know hx of severe steosis Acute thrombosis of the left iliac arteries with left AKA stump pain. Give bolus of fluids Obtain renal ultrasound URINALYSIS Nephrology consult Repeat labs in AM Continue glycemic control Hold losatarn. start isosorbid Monitor H/H Resume Antiplatelets, In the setting of anemia, will defer to Vascular if patient should continue on dual therapy Adjust pain control DVT/GI proph Plan discussed with patient Discharge in am if renal function improving History Interval history: Patient seen and examined, continues to complain of pain in the left thigh region, no swelling noted. No other adverse event noted. Hospitalist Physical - Physical exam Narrative exam: VITAL SIGNS: Reviewed. GENERAL: The patient appears normally developed, Vital signs as documented. sitting up in bed HEAD: No signs of head trauma. EYES: Pupils are equal. Extraocular motions intact. EARS: Hearing grossly intact. MOUTH: Oropharynx is normal. NECK: No adenopathy, no JVD. CHEST: Chest with clear breath sounds bilaterally. No wheezes, rales, or rhonchi. CARDIAC: Regular rate and rhythm. S1 and S2, without murmurs, gallops, or rubs. VASCULAR: No Edema. Peripheral pulses normal and equal in upper ext. ABDOMEN: Soft, non tender and non distended. No rebound or guarding, and no masses palpated. Bowel Sounds normal. MUSCULOSKELETAL: s/p bilteral BKA. , left groin hematoma and bursing noted. No pen wound NEUROLOGIC EXAM: Alert and oriented x 3 No focal sensory or strength deficits. Speech normal. Follows commands. PSYCHIATRIC: Mood normal. SKIN: detial exam as documented in skin assessment - Constitutional Vitals: Temp Pulse Resp BP Pulse Ox 98.6 F 75 18 141/55 95 06/11/19 07:28 06/11/19 07:28 06/11/19 07:28 06/11/19 07:28 06/11/19 07:28 General appearance: Present: no acute distress Results - Labs CBC & Chem 7: 06/11/19 04:17 06/11/19 04:17 Labs: Laboratory Last Values WBC 12.1 K/mm3 (4.5-11.0) H 06/11/19 04:17 RBC 2.62 M/mm3 (3.65-5.03) L 06/11/19 04:17 Hgb 7.6 gm/dl (10.1-14.3) L 06/11/19 04:17 Hct 22.9 % (30.3-42.9) L 06/11/19 04:17 MCV 87 fl (79-97) 06/11/19 04:17 MCH 29 pg (28-32) 06/11/19 04:17 MCHC 33 % (30-34) 06/11/19 04:17 RDW 14.1 % (13.2-15.2) 06/11/19 04:17 Plt Count 170 K/mm3 (140-440) 06/11/19 04:17 Lymph % (Auto) 20.1 % (13.4-35.0) 06/11/19 04:17 [place] % (Auto) 7.8 % (0.0-7.3) H 06/11/19 04:17 Eos % (Auto) 3.0 % (0.0-4.3) 06/11/19 04:17 Baso % (Auto) 0.4 % (0.0-1.8) 06/11/19 04:17 Lymph # 2.4 K/mm3 (1.2-5.4) 06/11/19 04:17 [place] # 0.9 K/mm3 (0.0-0.8) H 06/11/19 04:17 Eos # 0.4 K/mm3 (0.0-0.4) 06/11/19 04:17 Baso # 0.0 K/mm3 (0.0-0.1) 06/11/19 04:17 Seg Neutrophils % 68.7 % (40.0-70.0) 06/11/19 04:17 Seg Neutrophils # 8.3 K/mm3 (1.8-7.7) H 06/11/19 04:17 PT 15.0 Sec. (12.2-14.9) H 06/09/19 23:31 INR 1.19 (0.87-1.13) H 06/09/19 23:31 APTT 35.9 Sec. (24.2-36.6) 06/09/19 23:31 Heparin Anti-Xa Level > 2.00 U.I./ml (0.3-0.7) H 06/10/19 12:49 Sodium 137 mmol/L (137-145) 06/11/19 04:17 Potassium 4.4 mmol/L (3.6-5.0) 06/11/19 04:17 Chloride 106.9 mmol/L (98-107) 06/11/19 04:17 Carbon Dioxide 17 mmol/L (22-30) L 06/11/19 04:17 Anion Gap 18 mmol/L 06/11/19 04:17 BUN 31 mg/dL (7-17) H 06/11/19 04:17 Creatinine 1.8 mg/dL (0.7-1.2) H 06/11/19 04:17 Estimated GFR 34 ml/min 06/11/19 04:17 BUN/Creatinine Ratio 17 % 06/11/19 04:17 Glucose 171 mg/dL (65-100) H 06/11/19 04:17 POC Glucose 153 (70-105) H 06/11/19 07:35 Calcium 7.9 mg/dL (8.4-10.2) L 06/11/19 04:17 Total Creatine Kinase 100 units/L (30-135) 06/10/19 00:16 Blood Type A POSITIVE 06/10/19 15:51 Antibody Screen Negative 06/10/19 15:51 Crossmatch See Detail 06/10/19 15:51 Active Medications - Current Medications Current Medications: Generic Name Dose Route Start Last Admin Trade Name Freq PRN Reason Stop Dose Admin Acetaminophen 650 mg 06/10/19 05:42 Tylenol [place] Q4H PRN Fever >101 Acetaminophen/Hydrocodone [place] 1 each 06/10/19 15:57 [place] 7.5/325 PO Q6HR PRN PAIN Apixaban 2.5 mg 06/10/19 22:00 Eliquis PO BID [facility] Protocol Aspirin 81 mg 06/11/19 10:00 Halfprin Ec PO QDAY [facility] Atorvastatin Calcium 80 mg 06/10/19 22:00 06/10/19 21:21 Lipitor PO 80 mg QHS [facility] Administration Brimonidine Tartrate 1 drops 06/11/19 10:00 Alphagan P 0.15% OU DAILY [facility] Dextrose 50 ml 06/10/19 05:44 D50w (25gm) Syringe IV Q30MIN PRN Hypoglycemia Gabapentin 300 mg 06/10/19 20:00 06/10/19 21:20 Gabapentin PO 300 mg TID [facility] Administration Glipizide 10 mg 06/11/19 08:00 Glucotrol Xl PO QAMDIAB [facility] Hydromorphone HCl 1 mg 06/10/19 05:39 06/10/19 11:43 Dilaudid IV 1 mg Q4H PRN Administration Pain, Moderate (4-6) Sodium Chloride 1,000 mls @ 999 mls/hr 06/11/19 08:11 Nacl 0.9% 1000 Ml IV 06/11/19 09:11 BOLUS ONE Insulin Human Isoph/Insulin Regular 12 unit 06/10/19 11:00 06/10/19 16:13 Humulin 70/30 SUB-Q 12 unit BIDDIAB TIMOTHY Administration Insulin Human Regular 0 units 06/10/19 06:00 06/10/19 18:05 Humulin R SUB-Q Not Given Q4HR [facility] Protocol Latanoprost 1 drops 06/10/19 18:00 06/10/19 20:07 Latanoprost 0.005% OU Not Given QPM [facility] Ondansetron HCl 4 mg 06/10/19 05:41 Zofran IV Q8H PRN Nausea And Vomiting Tizanidine HCl 4 mg 06/11/19 10:00 Zanaflex PO DAILY TIMOTHY Tramadol HCl 50 mg 06/10/19 15:57 06/10/19 21:21 Ultram PO 50 mg Q4H PRN Administration Pain , Severe (7-10)
[2019-06-11] MEDS ORDERED: SODIUM CHLORIDE 0.9% 1000 ML 1,000 ML IV ONE (08:30)
--- NOTE | 2019-06-11 08:48 | Progress Note ---
Assessment and Plan Patient appears to be doing well. Potentially able to discharge home later on this afternoon. Subjective Date of service: 06/11/19 Principal diagnosis: PVD with rest pain Interval history: Patient with a history of peripheral Lasseter disease with rest pain and bilateral ssjko-hnc-wvef amputations who recently underwent a vascularization of her left leg. Following discharge, the patient returned with complaints of pain at the site of left leg access. The patient does have a soft tissue bruise. Her hemoglobin trended down somewhat. During the procedure, the patient underwent, lysis as well as aspiration and a component of her decreased hemoglobin may be secondary to hematoma. The patient is sitting up in bed eating breakfast and comfortable. Objective - Constitutional Vitals: Vital Signs - 12hr 06/11/19 06/11/19 02:01 07:28 Temperature 99.1 F 98.6 F Pulse Rate 75 75 Respiratory 18 18 Rate Blood Pressure 162/45 141/55 O2 Sat by Pulse 97 95 Oximetry General appearance: Present: no acute distress - EENT Eyes: EOM intact ENT: hearing intact - Neck Neck: supple, normal ROM - Respiratory Respiratory effort: normal - Breasts Breasts: deferred Extremities: abnormal (bilateral [id number]-nzf-nmdv amputations, left groin hematoma) - Gastrointestinal General gastrointestinal: Present: deferred Rectal Exam: deferred - Genitourinary Female genitourinary: deferred - Psychiatric Psychiatric: appropriate mood/affect, cooperative - Labs CBC & Chem 7: 06/11/19 04:17 06/11/19 04:17 Labs: Abnormal lab results 06/10/19 06/10/19 06/10/19 Range/Units 10:20 12:49 12:49 WBC 12.8 H (4.5-11.0) K/mm3 RBC 2.24 L (3.65-5.03) M/mm3 Hgb 6.4 L (10.1-14.3) gm/dl Hct 19.6 L* (30.3-42.9) % Lymph % (Auto) 13.3 L (13.4-35.0) % [place] % (Auto) (0.0-7.3) % [place] # 0.9 H (0.0-0.8) K/mm3 Seg Neutrophils % 79.1 H (40.0-70.0) % Seg Neutrophils # 10.1 H (1.8-7.7) K/mm3 Heparin Anti-Xa Level > 2.00 H (0.3-0.7) U.I./ml Carbon Dioxide (22-30) mmol/L BUN (7-17) mg/dL Creatinine (0.7-1.2) mg/dL Glucose (65-100) mg/dL POC Glucose 372 H (70-105) Calcium (8.4-10.2) mg/dL Crossmatch 06/10/19 06/10/19 06/10/19 Range/Units 12:49 14:11 15:51 WBC (4.5-11.0) K/mm3 RBC (3.65-5.03) M/mm3 Hgb 6.1 L (10.1-14.3) gm/dl Hct 18.6 L* (30.3-42.9) % Lymph % (Auto) (13.4-35.0) % [place] % (Auto) (0.0-7.3) % [place] # (0.0-0.8) K/mm3 Seg Neutrophils % (40.0-70.0) % Seg Neutrophils # (1.8-7.7) K/mm3 Heparin Anti-Xa Level (0.3-0.7) U.I./ml Carbon Dioxide 16 L (22-30) mmol/L BUN 30 H (7-17) mg/dL Creatinine 1.6 H (0.7-1.2) mg/dL Glucose 345 H (65-100) mg/dL POC Glucose 440 H (70-105) Calcium 8.1 L (8.4-10.2) mg/dL Crossmatch 06/10/19 06/10/19 06/11/19 Range/Units 15:51 16:20 04:17 WBC 12.1 H (4.5-11.0) K/mm3 RBC 2.62 L (3.65-5.03) M/mm3 Hgb 7.6 L (10.1-14.3) gm/dl Hct 22.9 L (30.3-42.9) % Lymph % (Auto) (13.4-35.0) % [place] % (Auto) 7.8 H (0.0-7.3) % [place] # 0.9 H (0.0-0.8) K/mm3 Seg Neutrophils % (40.0-70.0) % Seg Neutrophils # 8.3 H (1.8-7.7) K/mm3 Heparin Anti-Xa Level (0.3-0.7) U.I./ml Carbon Dioxide (22-30) mmol/L BUN (7-17) mg/dL Creatinine (0.7-1.2) mg/dL Glucose (65-100) mg/dL POC Glucose 321 H (70-105) Calcium (8.4-10.2) mg/dL Crossmatch See Detail 06/11/19 06/11/19 06/11/19 Range/Units 04:17 06:17 07:35 WBC (4.5-11.0) K/mm3 RBC (3.65-5.03) M/mm3 Hgb (10.1-14.3) gm/dl Hct (30.3-42.9) % Lymph % (Auto) (13.4-35.0) % [place] % (Auto) (0.0-7.3) % [place] # (0.0-0.8) K/mm3 Seg Neutrophils % (40.0-70.0) % Seg Neutrophils # (1.8-7.7) K/mm3 Heparin Anti-Xa Level (0.3-0.7) U.I./ml Carbon Dioxide 17 L (22-30) mmol/L BUN 31 H (7-17) mg/dL Creatinine 1.8 H (0.7-1.2) mg/dL Glucose 171 H (65-100) mg/dL POC Glucose 166 H 153 H (70-105) Calcium 7.9 L (8.4-10.2) mg/dL Crossmatch Medications & Allergies - Medications Allergies/Adverse Reactions: Allergies No Known Allergies Allergy (Unverified 06/08/19 14:39) Home Medications: Home Medications Medication Instructions Recorded Confirmed Last Taken Type Aspirin [Adult Low Dose Aspirin EC] 81 mg PO QDAY 04/08/16 06/10/19 06/07/19 History Gabapentin 300 mg PO TID 04/08/16 06/10/19 06/08/19 History Latanoprost 1 drop OU QHS 04/08/16 06/10/19 06/08/19 History glipiZIDE [glipiZIDE XL] 10 mg PO QDAY 04/08/16 06/10/19 06/08/19 History Losartan [Cozaar] 100 mg PO HS #30 tablet 04/24/16 06/10/19 06/08/19 Rx Atorvastatin Calcium [Lipitor] 80 mg PO QHS 06/08/19 06/10/19 06/08/19 History Brimonidine 0.15% [Alphagan P 1 drops OU DAILY 06/08/19 06/10/19 06/08/19 History 0.15%] Metformin HCl [Metformin HCl ER] 500 mg PO BID 06/08/19 06/10/19 06/07/19 History tiZANidine [Zanaflex 4mg TAB] 4 mg PO DAILY 06/08/19 06/10/19 06/08/19 History traMADol [Ultram 50 MG tab] 50 mg PO Q4H PRN 06/08/19 06/10/19 06/08/19 History Apixaban [Eliquis] 0 mg PO BID #60 tablet 06/09/19 06/10/19 Unknown Rx HYDROcodone/APAP 7.5-325 [[place] 1 each PO Q6HR PRN #20 tablet 06/09/19 06/10/19 Unknown Rx 7.5/325] Active Medications: Generic Name Dose Route Start Last Admin Trade Name Freq PRN Reason Stop Dose Admin Acetaminophen 650 mg 06/10/19 05:42 Tylenol [place] Q4H PRN Fever >101 Acetaminophen/Hydrocodone Bitart 1 each 06/10/19 15:57 [place] 7.5/325 PO Q6HR PRN PAIN Apixaban 2.5 mg 06/10/19 22:00 Eliquis PO BID [facility] Protocol Aspirin 81 mg 06/11/19 10:00 Halfprin Ec PO QDAY TIMOTHY Atorvastatin Calcium 80 mg 06/10/19 22:00 06/10/19 21:21 Lipitor PO 80 mg QHS [facility] Administration Brimonidine Tartrate 1 drops 06/11/19 10:00 Alphagan P 0.15% OU DAILY [facility] Dextrose 50 ml 06/10/19 05:44 D50w (25gm) Syringe IV Q30MIN PRN Hypoglycemia Gabapentin 300 mg 06/10/19 20:00 06/10/19 21:20 Gabapentin PO 300 mg TID TIMOTHY Administration Glipizide 10 mg 06/11/19 08:00 Glucotrol Xl PO QAMDIAB TIMOTHY Hydromorphone HCl 1 mg 06/10/19 05:39 06/10/19 11:43 Dilaudid IV 1 mg Q4H PRN Administration Pain, Moderate (4-6) Sodium Chloride 1,000 mls @ 999 mls/hr 06/11/19 08:30 Nacl 0.9% 1000 Ml IV 06/11/19 09:30 BOLUS ONE Sodium Chloride 1,000 mls @ 100 mls/hr 06/11/19 09:00 Nacl 0.9% 1000 Ml IV DIRECT TIMOTHY Insulin Human Isoph/Insulin Regular 12 unit 06/10/19 11:00 06/10/19 16:13 Humulin 70/30 SUB-Q 12 unit BIDDIAB TIMOTHY Administration Insulin Human Regular 0 units 06/10/19 06:00 06/10/19 18:05 Humulin R SUB-Q Not Given Q4HR [facility] Protocol Latanoprost 1 drops 06/10/19 18:00 06/10/19 20:07 Latanoprost 0.005% OU Not Given QPM [facility] Ondansetron HCl 4 mg 06/10/19 05:41 Zofran IV Q8H PRN Nausea And Vomiting Tizanidine HCl 4 mg 06/11/19 10:00 Zanaflex PO DAILY [facility] Tramadol HCl 50 mg 06/10/19 15:57 06/10/19 21:21 Ultram PO 50 mg Q4H PRN Administration Pain , Severe (7-10)
[2019-06-11] MEDS: GABAPENTIN 300 MG CAP PO SCH ×3 (08:49→23:10)
[2019-06-11] MEDS: INSULIN NPH/REGULAR 70/30 INJ SUB-Q SCH ×2 (08:52→17:44)
[2019-06-11] MEDS ORDERED: SODIUM CHLORIDE 0.9% 1000 ML 1,000 ML IV SCH (09:00)
[2019-06-11] MEDS: HYDROmorphone 1 MG/1 ML INJ IV PRN (10:35)
[2019-06-11] MEDS: INSULIN REGULAR, HUMAN 100 UNITS/1 ML SUB-Q SCH ×3 (10:36→17:45)
[2019-06-11] MEDS: BRIMONIDINE 0.15% OPHTH SOLN OU SCH (10:37)
[2019-06-11] MEDS: tiZANidine TAB 4 MG TAB PO SCH (10:37)
[2019-06-11] MEDS: ASPIRIN EC 81 MG TAB PO SCH (10:37)
--- NOTE | 2019-06-11 10:42 | Ultrasound Report ---
ULTRASOUND RENAL INDICATION: MUNIR. COMPARISON: No relevant prior imaging study available. FINDINGS: RIGHT KIDNEY: Size: 10.9 cm. Echogenicity: Increased. Cortical thickness: Normal. Stones: None. Hydronephrosis: None. Cyst or mass: Multiple cysts ranging in size up to 3 cm. LEFT KIDNEY: Size: 9.3 cm. Echogenicity: Increased. Cortical thickness: Normal. Stones: None. Hydronephrosis: None. Cyst or mass: None. Urinary Bladder: No significant abnormality. Free Fluid: None. Additional Findings: None. IMPRESSION 1. No acute sonographic abnormality of the kidneys. Signer Name: Luis Ibarra MD Signed: 06/11/2019 10:37 AM Workstation Name: [id number]
--- NOTE | 2019-06-11 12:09 | Consultation ---
History of Present Illness - Reason for Consult acute renal failure - History of Present Illness This is a very pleasant 69-year-old -[place] female with a significant past medical history of peripheral vascular disease and bilateral oqgay-jpo-[id number] amputations, who underwent a percutaneous procedure with vascular surgery the day before admission to assess blood flow on the left side. Upon discharge from the procedure she began to experience pain along the medial aspect of her left leg at the puncture site. She was noted to have subcutaneous bruising. While here in the emergency room department she had a CTA done which showed a thrombus in the proximal left common iliac artery stent. Nephrology is being consulted at this time secondary to acute kidney injury at this time. She has a si gnificant history of diabetes which has likely led to many of the complications of her peripheral vascular disease. She is also being seen by Dr. Recinos, urology secondary to history of kidney stones. She says she's had one episode of kidney stones which has passed spontaneously. She has had no other complications from the aforementioned kidney stone. No other history of renal disease per patient. She is currently on normal saline at 100 mL an hour. Past History Past Medical History: diabetes, PVD Past Surgical History: Other (bilateral [id number]-[id number] amputations, left iliac artery to profunda bypass graft) Social history: no significant social history, lives with family Family history: no significant family history Medications and Allergies Allergies Allergy/AdvReac Type Severity Reaction Status Date / Time No Known Allergies Allergy Unverified 06/08/19 14:39 Home Medications Medication Instructions Recorded Confirmed Last Taken Type Aspirin [Adult Low Dose Aspirin EC] 81 mg PO QDAY 04/08/16 06/10/19 06/07/19 History Gabapentin 300 mg PO TID 04/08/16 06/10/19 06/08/19 History Latanoprost 1 drop OU QHS 04/08/16 06/10/19 06/08/19 History glipiZIDE [glipiZIDE XL] 10 mg PO QDAY 04/08/16 06/10/19 06/08/19 History Losartan [Cozaar] 100 mg PO HS #30 tablet 04/24/16 06/10/19 06/08/19 Rx Atorvastatin Calcium [Lipitor] 80 mg PO QHS 06/08/19 06/10/19 06/08/19 History Brimonidine 0.15% [Alphagan P 1 drops OU DAILY 06/08/19 06/10/19 06/08/19 History 0.15%] Metformin HCl [Metformin HCl ER] 500 mg PO BID 06/08/19 06/10/19 06/07/19 History tiZANidine [Zanaflex 4mg TAB] 4 mg PO DAILY 06/08/19 06/10/19 06/08/19 History traMADol [Ultram 50 MG tab] 50 mg PO Q4H PRN 06/08/19 06/10/19 06/08/19 History Apixaban [Eliquis] 0 mg PO BID #60 tablet 06/09/19 06/10/19 Unknown Rx HYDROcodone/APAP 7.5-325 [[place] 1 each PO Q6HR PRN #20 tablet 06/09/19 06/10/19 Unknown Rx 7.5/325] Active Meds: Active Medications Acetaminophen (Tylenol) 650 mg [place] Q4H PRN PRN Reason: Fever >101 Acetaminophen/Hydrocodone Bitart ([place] 7.5/325) 1 each PO Q6HR PRN PRN Reason: PAIN Apixaban (Eliquis) 2.5 mg PO BID [facility]; Protocol Last Admin: 06/11/19 10:37 Dose: 2.5 mg Documented by: Aspirin (Halfprin Ec) 81 mg PO QDAY [facility] Last Admin: 06/11/19 10:37 Dose: 81 mg Documented by: Atorvastatin Calcium (Lipitor) 80 mg PO QHS [facility] Last Admin: 06/10/19 21:21 Dose: 80 mg Documented by: Brimonidine Tartrate (Alphagan P 0.15%) 1 drops OU DAILY [facility] Last Admin: 06/11/19 10:37 Dose: 1 drops Documented by: Dextrose (D50w (25gm) Syringe) 50 ml IV Q30MIN PRN PRN Reason: Hypoglycemia Gabapentin (Gabapentin) 300 mg PO TID [facility] Last Admin: 06/11/19 08:49 Dose: 300 mg Documented by: Glipizide (Glucotrol Xl) 10 mg PO QAMDIAB [facility] Last Admin: 06/11/19 08:52 Dose: 10 mg Documented by: Hydromorphone HCl (Dilaudid) 1 mg IV Q4H PRN PRN Reason: Pain, Moderate (4-6) Last Admin: 06/11/19 10:35 Dose: 1 mg Documented by: Sodium Chloride (Nacl 0.9% 1000 Ml) 1,000 mls @ 100 mls/hr IV DIRECT [facility] Insulin Human Isoph/Insulin Regular (Humulin 70/30) 12 unit SUB-Q BIDDIAB [facility] Last Admin: 06/11/19 08:52 Dose: 12 unit Documented by: Insulin Human Regular (Humulin R) 0 units SUB-Q Q4HR [facility]; Protocol Last Admin: 06/11/19 10:36 Dose: 8 units Documented by: Latanoprost (Latanoprost 0.005%) 1 drops OU QPM [facility] Last Admin: 06/10/19 20:07 Dose: Not Given Documented by: Ondansetron HCl (Zofran) 4 mg IV Q8H PRN PRN Reason: Nausea And Vomiting Tizanidine HCl (Zanaflex) 4 mg PO DAILY [facility] Last Admin: 06/11/19 10:37 Dose: 4 mg Documented by: Tramadol HCl (Ultram) 50 mg PO Q4H PRN PRN Reason: Pain , Severe (7-10) Last Admin: 06/10/19 21:21 Dose: 50 mg Documented by: Review of Systems Constitutional: fatigue, weakness Exam - Vital Signs Vital signs: Vital Signs Pulse Resp Pulse Ox 92 H 13 97 06/09/19 23:16 06/09/19 23:16 06/09/19 23:16 - General Appearance General appearance: well-developed, well-nourished, appears stated age EENT: ATNC, PERRL Neck: Present: neck supple, trachea midline Respiratory: Clear to Ascultation, Normal Exam Heart: regular, S1S2 Gastrointestinal: Present: normal, normoactive bowel sounds Integumentary: warm and dry Neurologic: no focal deficit, CN 3-12 intact Musculoskeletal: Present: other (bilateral [id number]-ulp-[id number] amputations) Psychiatric: mood/affect appropriate, cooperative Results - Lab Results 06/11/19 04:17 06/11/19 04:17 Most recent lab results Calcium 7.9 mg/dL (8.4-10.2) L 06/11/19 04:17 Assessment and Plan - Patient Problems (1) Acute kidney injury Current Visit: Yes Status: Acute Plan to address problem: Likely as a consequence of prerenal injury complicated by contrast exposure with the aforementioned vascular procedures and CT angiogram done during this admission. We'll continue on current IV fluid hydration. Renal ultrasound reviewed without any acute abnormalities. Will add urinalysis as well as urine electrolytes for further evaluation of the acute kidney injury. Please avoid all nephrotoxins. Maintain map above 65 mmHg. Monitor renal function daily. (2) Iliac artery thrombosis, left Current Visit: Yes Status: Acute Plan to address problem: Management per vascular surgery. (3) Diabetes Current Visit: No Status: Chronic Qualifiers: Diabetes mellitus type: type 2 Diabetes mellitus clinical administrative coordinator insulin use: [facility] intermediate use Diabetes mellitus complication status: with hyperglycemia Qualified Code(s): E11.65 - Type 2 diabetes mellitus with hyperglycemia Plan to address problem: Management per primary attending.
[2019-06-11] MEDS: LATANOPROST 0.005% OPHTH SOLN 2.5 ML OU SCH (18:01)
[2019-06-11 18:45] LABS: Chloride, Urine 27.9 mmolL (110-250)
[2019-06-11 18:48] LABS: Bilirubin,Urine NEG (Negative); Blood,Urine SM (Negative); Color,Urine Straw (Yellow); Protein,Urine <15 mg/dL mg/dL (Negative); RBC,Urine < 1.0 /HPF (0.0-6.0); Urobilinogen,Urine < 2.0 mg/dL (<2.0)
[2019-06-11] MEDS: APIXABAN 5 MG TAB PO SCH (23:06)
[2019-06-12 05:03] LABS: Hematocrit 22.4 % (30.3-42.9); Hemoglobin 7.5 gm/dl (10.1-14.3); Mean Corpuscular HGB Conc 34 % (30-34); Mean Corpuscular Volume 87 fl (79-97); Platelet Count 168 K/mm3 (140-440); Red Blood Count 2.56 M/mm3 (3.65-5.03); Red Cell Distribution Width 14.2 % (13.2-15.2)
[2019-06-12] MEDS: GABAPENTIN 300 MG CAP PO SCH ×2 (08:45→13:51)
[2019-06-12] MEDS: INSULIN NPH/REGULAR 70/30 INJ SUB-Q SCH (08:45)
[2019-06-12] MEDS: INSULIN REGULAR, HUMAN 100 UNITS/1 ML SUB-Q SCH ×2 (10:00→14:45)
[2019-06-12] MEDS: tiZANidine TAB 4 MG TAB PO SCH (10:01)
[2019-06-12] MEDS: CLOPIDOGREL 75 MG TAB PO SCH ×2 (10:01→10:35)
[2019-06-12] MEDS: ASPIRIN EC 81 MG TAB PO SCH (10:01)
[2019-06-12] MEDS: BRIMONIDINE 0.15% OPHTH SOLN OU SCH (10:02)
[2019-06-12] MEDS: APIXABAN 5 MG TAB PO SCH (10:35)
--- NOTE | 2019-06-12 11:04 | Discharge Summary ---
Providers - Providers Date of Admission: 06/10/19 05:37 Attending physician: EVELIN HOFFMAN MD 06/10/19 04:51 Consult to Physician [CONS] Urgent Comment: Dr. Andino spoke with Dr. Vargas @ 0430 Consulting Provider: KAREY VARGAS Physician Instructions: Reason For Exam: PAD, s/p angioplasty/stent, post op pain 06/10/19 10:33 Physical Therapy Evaluation and Treat [CONS] Routine Comment: wheelchair in-hospital Reason For Exam: bilateral ivvlq-syn-sbuy amputation, patient needs 06/10/19 15:49 Consult to Physician [CONS] Routine Comment: called answ./ serv. ramesh Consulting Provider: ANGEL THOMAS Physician Instructions: Reason For Exam: MUNIR Primary care physician: ANALOG DESIGN ENGINEER Hospitalization Reason for admission: LOWER EXT PAIN Condition: Stable Hospital course: 69-year-old female with a past medical history of PAD and bilateral BKA presents to the hospital complaining of pain left leg. Patient was here earlier today for outpatient vascular procedure. She had a preop diagnosis acute thrombosis of the left iliac arteries with left AKA stump pain. She received mechanical thrombectomy and angioplasty with stents of the left common iliac and external iliac arteries. Right femoral artery was cannulated procedure. Patient was discharged at 5 PM. At 6 PM started to complain of severe pain deep in the left leg. She has not yet filled her described [place] 7.5 mg for pain. Vascular: Dr Trivedi * was started on heparin drip then discontinued due to anemia * Vascular wanted the patient on tripple anti-platelet therapy and will follow with hemoglobin outpatient * patient advised of poor prognostic factors * During the procedure, the patient underwent, lysis as well as aspiration and a component of her decreased hemoglobin may be secondary to hematoma. * She was transfused 1 unit PRBC * some bruising noted to the site, unsure if the pain is as a result. 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 Know hx of severe steosis Acute thrombosis of the left iliac arteries with left AKA stump pain. Disposition: DC/TX-06 HOME UNDER HOME HL Time spent for discharge: 35 MINS Core Measure Documentation - Palliative Care Palliative Care/ Comfort Measures: Not Applicable - Core Measures Any of the following diagnoses?: none Exam - Physical Exam Narrative exam: VITAL SIGNS: Reviewed. GENERAL: The patient appears normally developed, Vital signs as documented. sitting up in bed HEAD: No signs of head trauma. EYES: Pupils are equal. Extraocular motions intact. EARS: Hearing grossly intact. MOUTH: Oropharynx is normal. NECK: No adenopathy, no JVD. CHEST: Chest with clear breath sounds bilaterally. No wheezes, rales, or rhonchi. CARDIAC: Regular rate and rhythm. S1 and S2, without murmurs, gallops, or rubs. VASCULAR: No Edema. Peripheral pulses normal and equal in upper ext. ABDOMEN: Soft, non tender and non distended. No rebound or guarding, and no masses palpated. Bowel Sounds normal. MUSCULOSKELETAL: s/p bilteral BKA. , left groin hematoma and bursing noted. No pen wound NEUROLOGIC EXAM: Alert and oriented x 3 No focal sensory or strength deficits. Speech normal. Follows commands. PSYCHIATRIC: Mood normal. SKIN: detial exam as documented in skin assessment - Constitutional Vitals: Temp Pulse Resp BP Pulse Ox 99.3 F 82 20 169/65 96 06/12/19 08:39 06/12/19 10:08 06/12/19 08:39 06/12/19 10:08 06/12/19 10:08 Plan Activity: advance as tolerated, fall precautions Diet: low salt, diabetic Special Instructions: record daily BP diary, record blood sugar diary Follow up with: PRIMARY CARE, [Primary Care Provider] - 3-5 Days KAREY VARGAS MD [Staff Physician] - 7 Days PAVEL WATTERS DO [Staff Physician] - 7 Days Prescriptions: Apixaban [Eliquis] 5 mg PO BID #60 tablet ISOSORBIDE MONOnitrate [Imdur ER] 30 mg PO QDAY #30 tablet HYDROcodone/APAP 7.5-325 [[place] 7.5-325 mg TAB] 1 each PO Q6HR PRN #20 tablet PRN Reason: Pain Clopidogrel [Plavix] 75 mg PO QDAY #30 tablet
--- NOTE | 2019-06-12 12:14 | Progress Note ---
Assessment and Plan - Patient Problems (1) Acute kidney injury Current Visit: Yes Status: Acute Plan to address problem: Likely as a consequence of prerenal injury complicated by contrast exposure with the aforementioned vascular procedures and CT angiogram done during this admission. We'll continue on current IV fluid hydration. Renal ultrasound r eviewed without any acute abnormalities. Renal function continues to improve. From a renal standpoint patient is stable for DC, with instructions to follow up in our renal clinic in 2 weeks post discharge. (2) Iliac artery thrombosis, left Current Visit: Yes Status: Acute Plan to address problem: Management per vascular surgery. (3) Diabetes Current Visit: No Status: Chronic Qualifiers: Diabetes mellitus type: type 2 Diabetes mellitus joint terminal attack controller insulin use: without jail use Diabetes mellitus complication status: with hyperglycemia Qualified Code(s): E11.65 - Type 2 diabetes mellitus with hyperglycemia Plan to address problem: Management per primary attending. Subjective Date of service: 06/12/19 Principal diagnosis: PVD with rest pain Interval history: No acute issues overnight, renal function stabilizing Objective - Vital Signs Vital signs: Vital Signs - 12hr 06/12/19 06/12/19 06/12/19 02:04 08:39 10:08 Temperature 98.8 F 99.3 F Pulse Rate 81 79 82 Respiratory 20 20 Rate Blood Pressure 121/38 131/42 169/65 O2 Sat by Pulse 95 98 96 Oximetry - General Appearance General appearance: well-developed, well-nourished, appears stated age EENT: ATNC, PERRL Neck: no JVD, no thyromegaly Respiratory: Present: Clear to Ascultation, Normal Exam Cardiology: regular, S1S2 Gastrointestinal: normal Integumentary: no rash, warm and dry Neurologic: no focal deficit Psychiatric: mood/affect appropriate, cooperative - Lab 06/12/19 04:30 06/12/19 04:30 Most recent lab results Calcium 8.0 mg/dL (8.4-10.2) L 06/12/19 04:30 Urine Creatinine mg/dL (0.1-20.0) 06/11/19 18:28 Urine Sodium 35 mmol/L 06/11/19 18:28 Medications & Allergies - Medications Allergies/Adverse Reactions: Allergies No Known Allergies Allergy (Unverified 06/08/19 14:39) Home Medications: Home Medications Medication Instructions Recorded Confirmed Last Taken Type Aspirin [Adult Low Dose Aspirin EC] 81 mg PO QDAY 04/08/16 06/10/19 06/07/19 History Gabapentin 300 mg PO TID 04/08/16 06/10/19 06/08/19 History Latanoprost 1 drop OU QHS 04/08/16 06/10/19 06/08/19 History glipiZIDE [glipiZIDE XL] 10 mg PO QDAY 04/08/16 06/10/19 06/08/19 History Losartan [Cozaar] 100 mg PO HS #30 tablet 04/24/16 06/10/19 06/08/19 Rx Atorvastatin Calcium [Lipitor] 80 mg PO QHS 06/08/19 06/10/19 06/08/19 History Brimonidine 0.15% [Alphagan P 1 drops OU DAILY 06/08/19 06/10/19 06/08/19 History 0.15%] Metformin HCl [Metformin HCl ER] 500 mg PO BID 06/08/19 06/10/19 06/07/19 History tiZANidine [Zanaflex 4mg TAB] 4 mg PO DAILY 06/08/19 06/10/19 06/08/19 History Apixaban [Eliquis] 5 mg PO BID #60 tablet 06/11/19 Unknown Rx Clopidogrel [Plavix] 75 mg PO QDAY #30 tablet 06/12/19 Unknown Rx HYDROcodone/APAP 7.5-325 [[place] 1 each PO Q6HR PRN #20 tablet 06/12/19 Unknown Rx 7.5-325 mg TAB] ISOSORBIDE MONOnitrate [Imdur ER] 30 mg PO QDAY #30 tablet 06/12/19 Unknown Rx Active Medications: Generic Name Dose Route Start Last Admin Trade Name Freq PRN Reason Stop Dose Admin Acetaminophen 650 mg 06/10/19 05:42 Tylenol [place] Q4H PRN Fever >101 Acetaminophen/Hydrocodone Bitart 1 each 06/10/19 15:57 06/11/19 16:48 [place] 7.5/325 PO 1 each Q6HR PRN Administration PAIN Apixaban 5 mg 06/11/19 22:00 06/12/19 10:35 Eliquis PO 5 mg Q12HR TIMOTHY Administration Protocol Aspirin 81 mg 06/11/19 10:00 06/12/19 10:01 Halfprin Ec PO 81 mg QDAY TIMOTHY Administration Atorvastatin Calcium 80 mg 06/10/19 22:00 06/11/19 23:07 Lipitor PO 80 mg QHS TIMOTHY Administration Brimonidine Tartrate 1 drops 06/11/19 10:00 06/12/19 10:02 Alphagan P 0.15% OU 1 drops DAILY TIMOTHY Administration Clopidogrel Bisulfate 75 mg 06/12/19 10:00 06/12/19 10:35 Plavix PO Not Given QDAY TIMOTHY Dextrose 50 ml 06/10/19 05:44 D50w (25gm) Syringe IV Q30MIN PRN Hypoglycemia Gabapentin 300 mg 06/10/19 20:00 06/12/19 08:45 Gabapentin PO 300 mg TID TIMOTHY Administration Glipizide 10 mg 06/11/19 08:00 06/12/19 08:46 Glucotrol Xl PO 10 mg QAMDIAB TIMOTHY Administration Hydromorphone HCl 1 mg 06/10/19 05:39 06/11/19 10:35 Dilaudid IV 1 mg Q4H PRN Administration Pain, Moderate (4-6) Sodium Chloride 1,000 mls @ 100 mls/hr 06/11/19 09:00 06/11/19 14:30 Nacl 0.9% 1000 Ml IV 100 mls/hr DIRECT TIMOTHY Administration Insulin Human Isoph/Insulin Regular 12 unit 06/10/19 11:00 06/12/19 08:45 Humulin 70/30 SUB-Q 12 unit BIDDIAB TIMOTHY Administration Insulin Human Regular 0 units 06/10/19 06:00 06/12/19 10:00 Humulin R SUB-Q 4 units Q4HR TIMOTHY Administration Protocol Isosorbide Mononitrate 30 mg 06/11/19 14:00 06/12/19 10:01 Imdur PO 30 mg QDAY TIMOTHY Administration Latanoprost 1 drops 06/10/19 18:00 06/11/19 18:01 Latanoprost 0.005% OU 1 drops QPM TIMOTHY Administration Ondansetron HCl 4 mg 06/10/19 05:41 Zofran IV Q8H PRN Nausea And Vomiting Tizanidine HCl 4 mg 06/11/19 10:00 06/12/19 10:01 Zanaflex PO 4 mg DAILY TIMOTHY Administration Tramadol HCl 50 mg 06/10/19 15:57 06/10/19 21:21 Ultram PO 50 mg Q4H PRN Administration Pain , Severe (7-10)
[2019-06-12 12:37] LABS: Creatinine,Urine 29.8 mg/dL (0.1-20.0)
[2019-06-12 13:52] VITALS: BP 113/41
[2019-06-12] MEDS: traMADol 50 MG TAB PO PRN (13:57)
== END 2019-06-12 14:55 | disposition home or self-care (01) | DRG 564 ==
LOC: ED 23:00 → 2B-ACE 06-10 05:37
PROVIDERS: ADMIT Internal Medicine; ATTEND Internal Medicine
PROC: 30233N1 Transfusion of Nonautologous Red Blood Cells into Peripheral Vein, Percutaneous Approach (ICD-10-PCS; principal; 2019-06-11)
DX: T87.89 Other complications of amputation stump (principal); N17.0 Acute kidney failure with tubular necrosis; R65.11 Systemic inflammatory response syndrome (SIRS) of non-infectious origin with acute organ dysfunction; I74.5 Embolism and thrombosis of iliac artery; D62 Acute posthemorrhagic anemia; M31.9 Necrotizing vasculopathy, unspecified; E11.65 Type 2 diabetes mellitus with hyperglycemia; E11.51 Type 2 diabetes mellitus with diabetic peripheral angiopathy without gangrene; M19.90 Unspecified osteoarthritis, unspecified site; Y83.8 Other surgical procedures as the cause of abnormal reaction of the patient, or of later complication, without mention of misadventure at the time of the procedure; Z79.82 Long term (current) use of aspirin; Z79.899 Other long term (current) drug therapy; Z89.512 Acquired absence of left leg below knee; Z89.511 Acquired absence of right leg below knee
CPT/HCPCS: 36415; 76770; 80048; 81001; 82436; 82550; 82570; 82962; 84133; 84300; 85014; 85018; 85025; 85027; 85520; 85610; 85730; 86850; 86900; 86901; 86920; 96361; 96365; 96366; 96375; G0378; A9270-GY; J1170; J1644; J1815; J2405; J7030; J7040; P9016; Q9967

== ENCOUNTER 2019-06-22 07:30 | Inpatient (IN) | payer MEDICARE ==
[2019-06-22 08:43] LABS: Hematocrit 26.5 % (30.3-42.9); Hemoglobin 8.9 gm/dl (10.1-14.3); Mean Corpuscular HGB Conc 34 % (30-34); Mean Corpuscular Volume 88 fl (79-97); Platelet Count 437 K/mm3 (140-440); Red Blood Count 3.02 M/mm3 (3.65-5.03); Red Cell Distribution Width 14.3 % (13.2-15.2)
[2019-06-22 08:51] LABS: INR 0.96 (0.87-1.13)
[2019-06-22 08:52] LABS: Partial Thromboplastin Time 29.8 Sec. (24.2-36.6)
[2019-06-22 08:57] LABS: BUN/Creatinine Ratio 21; Blood Urea Nitrogen 19 mg/dL (7-17); Calcium 9.5 mg/dL (8.4-10.2); Hemolysis Index 0
[2019-06-22] MEDS ORDERED: SODIUM CHLORIDE 0.9% 500 ML 500 ML IV SCH (09:00)
[2019-06-22] MEDS ORDERED: HEPARIN/NS 5000 UNIT/500ML 1,000 ML IR ONE (09:00)
[2019-06-22] MEDS ORDERED: SODIUM CHLORIDE 0.9% 1000 ML 1,000 ML ONE (09:21)
--- NOTE | 2019-06-22 09:39 | Short Stay Summary ---
Short Stay Documentation Date of service: 06/22/19 Narrative H&P: The patient is a 69-year-old female with a history of peripheral vascular disease in bilateral above-knee amputations who had a previous left iliac artery to left profunda artery bypass for stump pain. This was performed at an outside hospital several months ago. The bypass thrombosed and subsequently thrombosed her iliac vessels causing her to have severe rest pain. She underwent a percutaneous thrombectomy however this rethrombosed immediately after the procedure. She is in need of additional intervention to improve the flow to her stump and improve her rest pain. She continues to complain of some soreness to the left. She has no additional complaints. - History Past Medical History: CAD, cancer (history of breast cancer), diabetes, hypertension, hyperlipidemia, PVD Past Surgical History: cataract removal, mastectomy (right), Other (bilateral femoropopliteal bypasses, bilateral above-knee amputations, left iliac artery to profunda artery bypass,) Social history: - Allergies and Medications Current Medications: Allergies No Known Allergies Allergy (Unverified 06/08/19 14:39) Home Medications Medication Instructions Recorded Confirmed Last Taken Type Aspirin [Adult Low Dose Aspirin EC] 81 mg PO QDAY 04/08/16 06/21/19 06/21/19 History 81 mg Gabapentin 300 mg PO TID 04/08/16 06/21/19 06/21/19 History 300 mg Latanoprost 1 drop OU QHS 04/08/16 06/21/19 06/21/19 History 1 drop glipiZIDE [glipiZIDE XL] 10 mg PO QDAY 04/08/16 06/21/19 06/21/19 History 10 mg Losartan [Cozaar] 100 mg PO HS #30 tablet 04/24/16 06/21/19 06/21/19 Rx 100 mg Atorvastatin Calcium [Lipitor] 80 mg PO QHS 06/08/19 06/21/19 06/21/19 History 80 mg Brimonidine 0.15% [Alphagan P 1 drops OU DAILY 06/08/19 06/21/19 06/21/19 History 0.15%] 1 drop Metformin HCl [Metformin HCl ER] 500 mg PO BID 06/08/19 06/21/19 06/20/19 Histo ry 500 mg Clopidogrel [Plavix] 75 mg PO QDAY #30 tablet 06/12/19 06/21/19 06/21/19 Rx 75 mg HYDROcodone/APAP 7.5-325 [[place] 1 each PO Q6HR PRN #20 tablet 06/12/19 06/21/19 06/21/19 Rx 7.5-325 mg TAB] 1 tab ISOSORBIDE MONOnitrate [Imdur ER] 30 mg PO QDAY #30 tablet 06/12/19 Unknown Rx Apixaban [Eliquis] 5 mg PO DAILY 06/21/19 06/21/19 06/21/19 History 5 mg Active Medications Sodium Chloride (Nacl 0.9% 500 Ml) 500 mls @ 50 mls/hr IV DIRECT TIMOTHY Last Admin: 06/22/19 08:37 Dose: 50 mls/hr Documented by: - Physical exam General appearance: no acute distress Lungs: Normal air movement Breasts: deferred Heart: Regular rate Gastrointestinal: normal Female Genitourinary: deferred Rectal Exam: deferred Extremities: normal temperature, abnormal (left thigh with diffuse ecchymosis) Short Stay Discharge Plan Follow up with: HAWA LIAO JR, MD [Primary Care Provider] - 7 Days
[2019-06-22] MEDS ORDERED: WATER FOR INJ Sterile (PF) 10 ML ONE (09:43)
[2019-06-22] MEDS ORDERED: ALTEPLASE 2 MG INJ ONE (09:43)
[2019-06-22] MEDS: MIDAZOLAM 2 MG/2 ML INJ ONE ×2 (09:50→09:51)
[2019-06-22] MEDS: fentaNYL 100 MCG/2 ML INJ ONE ×2 (09:50→09:51)
[2019-06-22] MEDS: LIDOCAINE 1%/EPINEPHRINE 1:100,000 VIAL (20 ML) INFILTRATI ONE ×2 (09:51→09:52)
[2019-06-22] MEDS: HEPARIN 10,000 UNITS/10 ML VIAL ONE ×3 (10:20→11:21)
[2019-06-22] MEDS ORDERED: HEPARIN/ 0.45% NACL DRIP 25,000 UNIT/500 ML BAG ONE (11:21)
[2019-06-22] MEDS ORDERED: ONDANSETRON 4 MG/2 ML INJ IV PRN ×2 (11:33→15:11)
--- NOTE | 2019-06-22 11:49 | Operative Report ---
Operative Report Operative Report: Date of Procedure: 06/22/2019 Pre-operative Diagnosis: History of Thrombosis of Left Iliac Arteries with Left Above-Knee Amputation Stump Pain Post-operative Diagnosis: Same Procedure(s): 1. Ultrasound-Guided Access Right Common Femoral Artery 2. Diagnostic Aortogram with Left Lower Extremity Arteriogram (Patient Presented with a Clinical Change) 3. Stenting of Left Common Iliac Artery with 8 x 5 cm Viabahn Stent Graft 2 4. Angioplasty of Left Hypogastric Artery with 5 x 80 IN.Pact Drug-Coated B alloon 5. Thrombolysis of Left Hypogastric Artery with 106 x 12 EKOS Thrombolysis Catheter 6. Radiologic Supervision with Interpretation Surgeon: John Trivedi M.D. Kaitara Taraka: None Anesthesia: Local and IV Sedation EBL: Minimal Counts: Correct Complications: None Condition: Stable Specimen: None Indication: The patient is a 69-year-old female with a history of peripheral vascular dise ase who has bilateral above-knee amputations with rest pain in the left stump. She had an intervention to improve the flow to her left above-knee amputation however she developed thrombus within the left iliac arteries shortly after the intervention. She returns for a diagnostic arteriogram with possible thrombolysis. She was given the risk, benefits, and alternative procedures and consented to the procedure. Angiographic Findings: The aortogram revealed that the aorta was patent without any evidence of flow- limiting stenosis or thrombus. The left common iliac was patent without significant thrombus. The left external iliac was occluded. The origin of the left hypogastric artery had approximately 90% stenosis. The majority of the branches of the hypogastric artery were thrombosed with a single branch of the hypogastric noted to be patent and this branch provided collateral flow towards the profunda artery however there was thrombus within the branch. After the intervention the origin of the hypogastric artery was patent with less than 10% residual stenosis and the EKOS Thrombolysis Catheter was placed into the hypogastric artery and with the distal tip into the origin of the branch supplying flow into the profunda artery. Description of Procedure: The patient was brought to the medical laboratory technologist and laid in supine position. After a timeout was performed her right groin was prepped and draped in normal sterile fashion. Ultrasound was used to identify the right common femoral artery and confirm patency. Once patency was confirmed the overlying skin and soft tissue was anesthetized with lidocaine. A small stab incision was made and a hemostat was used to bluntly dissect down to the artery under ultrasound. Micropuncture technique was used with ultrasound guidance in the right common femoral artery and a 0.035 J-wire was advanced into the aorta. A 5 [place] Islander sheath was then placed by Seldinger technique. An Omni Flush catheter was advanced into the aorta and aortogram was performed. A Bentson wire was then advanced into the left iliac artery and the left lower extremity arteriogram was performed with the previously described findings.. Multiple catheters and wires were required to eventually get up and over the bifurcation secondary to the angle of the bifurcation and stents previously placed in the left common iliac artery. I eventually was able to advance a stiff 0.035 Glidewire over the bifurcation and in the left common femoral artery. This allowed me to exchange the 5 [place] Islander sheath for a 7 [place] 45 cm destination sheath. After advancing the sheath into the distal left common iliac artery I exchanged the Glidewire for a 0.018 V18 wire. I then covered the previously placed common iliac stents with two 8 x 5 cm Viabahn Stent Grafts. This was done so that her previously placed left common iliac artery to profunda artery bypass graft was not inadvertently lysed open. After placing the stent graft I reinserted a 0.035 crossing catheter and exchanged the V 18 wire for the stiff Glidewire and then readvanced the 7 [place] sheath into the distal common iliac artery. I then used a 5 [place] vertebral catheter and a 0.035 floppy Glidewire to cannulate the stenotic origin of the left hypogastric artery. I advanced the wire and catheter into the distal branch of the hypogastric artery and then exchanged the Glidewire for the Bents on wire. I performed angioplasty of the hypogastric artery with a 5 x 80 IN.Pact Drug-Coated Balloon with a result of less than 10% residual stenosis. I then advanced the EKOS Thrombolysis Catheter into the hypogastric artery with the distal tip slightly into the branch. I removed the Bentson wire and advanced the ultrasound wire into the thrombolysis catheter. I then primed the drug port with 4 mg of TPA, the coolant port with 2000 units of heparin, and the sheath with 3000 units of heparin. The sheath was then secured to the patient with 2-0 Ethilon and the thrombolysis catheter was secured to the sheath with 0 silk. The catheter and sheath were then dressed with sterile dressings. The patient tolerated the procedure well and was transported to the recovery area in stable condition.
[2019-06-22] MEDS ORDERED: ALTEPLASE 20 MG in SODIUM CHLORIDE 0.9% 500 ML 500 ML EKOSDLUMEN SCH (12:00)
[2019-06-22] MEDS ORDERED: SODIUM CHLORIDE 0.9% 1000 ML 1,000 ML SHEATH SCH (12:00)
[2019-06-22] MEDS ORDERED: SODIUM CHLORIDE 0.9% 1000 ML 1,000 ML IV SCH (12:00)
[2019-06-22] MEDS: ALTEPLASE 20 MG in SODIUM CHLORIDE 0.9% 500 ML 500 ML EKOSDLUMEN SCH ×2 (12:25→12:36)
[2019-06-22] MEDS: SODIUM CHLORIDE 0.9% 1000 ML 1,000 ML EKOSCLUMEN SCH ×2 (12:25→12:36)
[2019-06-22] MEDS: MORPHINE 4 MG/1 ML INJ IV PRN ×2 (12:25→16:10)
[2019-06-22] MEDS ORDERED: HEPARIN/ 0.45% NACL DRIP 25,000 UNIT/500 ML BAG SHEATH SCH (12:30)
[2019-06-22] MEDS: HYDROcodone/ACETAMINOPHEN 5-325 MG TAB PO PRN (12:55)
[2019-06-22] MEDS ORDERED: HEPARIN/NS 5000 UNIT/500ML 500 ML IR ONE (13:36)
[2019-06-22] MEDS ORDERED: KETOROLAC 30 MG/1 ML INJ ONE (13:54)
--- NOTE | 2019-06-22 14:01 | Event Note ---
Date: 06/22/19 Patient on the EKOS thrombolysis gtt for 1 hour lying flat in OPPU, complaining of severe pain in left AKA stump not controlled well with narcotics. Hematoma in lefty groin appears stable. Patient will no remain flat. Do not feel it is safe to continue thrombolyis. Hr 83 SBP 104. She has received 2 [place] and 4mg of Morphine. Will check hgb and remove the EKOS catheter at the bedside and place Angioseal for closure.
[2019-06-22] MEDS ORDERED: KETOROLAC 30 MG/1 ML INJ IV ONE (14:04)
[2019-06-22 14:22] LABS: Hematocrit 25.1 % (30.3-42.9); Hemoglobin 8.3 gm/dl (10.1-14.3)
[2019-06-22] MEDS: INSULIN LISPRO 100 UNIT/ML SUB-Q SCH ×2 (18:03→21:42)
[2019-06-22] MEDS: MORPHINE 2 MG/1 ML INJ IV PRN (20:20)
[2019-06-22] MEDS: GABAPENTIN 300 MG CAP PO SCH (21:41)
[2019-06-22] MEDS ORDERED: LATANOPROST 0.005% OPHTH SOLN 2.5 ML OU SCH (22:00)
[2019-06-22] MEDS ORDERED: NON-FORMULARY EACH (Atorvastatin Calcium [Lipitor] 80 MG) PO SCH (22:00)
[2019-06-23] MEDS: MORPHINE 2 MG/1 ML INJ IV PRN (00:30)
[2019-06-23] MEDS: INSULIN LISPRO 100 UNIT/ML SUB-Q SCH ×2 (08:00→12:00)
[2019-06-23] MEDS: GABAPENTIN 300 MG CAP PO SCH ×2 (08:35→14:17)
[2019-06-23] MEDS ORDERED: APIXABAN 5 MG TAB PO SCH (10:00)
[2019-06-23] MEDS ORDERED: CLOPIDOGREL 75 MG TAB PO SCH (10:00)
[2019-06-23] MEDS ORDERED: ASPIRIN EC 81 MG TAB PO SCH (10:00)
[2019-06-23] MEDS ORDERED: BRIMONIDINE 0.15% OPHTH SOLN OU SCH (10:00)
--- NOTE | 2019-06-23 11:01 | Short Stay Summary ---
Short Stay Documentation Date of service: 06/23/19 - History Past Medical History: CAD, cancer (history of breast cancer), diabetes, hypertension, hyperlipidemia, PVD Past Surgical History: cataract removal, mastectomy (right), Other (bilateral femoropopliteal bypasses, bilateral above-knee amputations, left iliac artery to profunda artery bypass,) Social history: - Allergies and Medications Current Medications: Allergies No Known Allergies Allergy (Unverified 06/08/19 14:39) Home Medications Medication Instructions Recorded Confirmed Last Taken Type Aspirin [Adult Low Dose Aspirin EC] 81 mg PO QDAY 04/08/16 06/21/19 06/21/19 History 81 mg Gabapentin 300 mg PO TID 04/08/16 06/21/19 06/21/19 History 300 mg Latanoprost 1 drop OU QHS 04/08/16 06/21/19 06/21/19 History 1 drop glipiZIDE [glipiZIDE XL] 10 mg PO QDAY 04/08/16 06/21/19 06/21/19 History 10 mg Losartan [Cozaar] 100 mg PO HS #30 tablet 04/24/16 06/21/19 06/21/19 Rx 100 mg Atorvastatin Calcium [Lipitor] 80 mg PO QHS 06/08/19 06/21/19 06/21/19 History 80 mg Brimonidine 0.15% [Alphagan P 1 drops OU DAILY 06/08/19 06/21/19 06/21/19 History 0.15%] 1 drop Metformin HCl [Metformin HCl ER] 500 mg PO BID 06/08/19 06/21/19 06/21/19 History 500 mg Clopidogrel [Plavix] 75 mg PO QDAY #30 tablet 06/12/19 06/21/19 06/21/19 Rx 75 mg HYDROcodone/APAP 7.5-325 [[place] 1 each PO Q6HR PRN #20 tablet 06/12/19 06/21/19 06/21/19 Rx 7.5-325 mg TAB] 1 tab ISOSORBIDE MONOnitrate [Imdur ER] 30 mg PO QDAY #30 tablet 06/12/19 06/21/19 Rx Apixaban [Eliquis] 5 mg PO DAILY 06/21/19 06/21/19 06/21/19 History 5 mg Active Medications Acetaminophen/Hydrocodone Bitart ([place] 5/325) 2 each PO Q6H PRN PRN Reason: Pain, Moderate (4-6) Last Admin: 06/22/19 12:55 Dose: 2 each Documented by: Apixaban (Eliquis) 5 mg PO BID [facility]; Protocol Aspirin (Halfprin Ec) 81 mg PO QDAY [facility] Last Admin: 06/23/19 09:01 Dose: 81 mg Documented by: Atorvastatin Calcium (Lipitor) 80 mg PO QHS [facility] Last Admin: 06/22/19 21:41 Dose: 80 mg Documented by: Brimonidine Tartrate (Alphagan P 0.15%) 1 drops OU DAILY [facility] Last Admin: 06/23/19 09:01 Dose: 1 drops Documented by: Clopidogrel Bisulfate (Plavix) 75 mg PO QDAY [facility] Last Admin: 06/23/19 09:01 Dose: 75 mg Documented by: Gabapentin (Gabapentin) 300 mg PO TID [facility] Last Admin: 06/23/19 08:35 Dose: 300 mg Documented by: Insulin Human Lispro (Humalog) 0 unit SUB-Q ACHS [facility]; Protocol Last Admin: 06/23/19 08:00 Dose: 3 unit Documented by: Isosorbide Mononitrate (Imdur) 30 mg PO QDAY [facility] Last Admin: 06/23/19 09:02 Dose: 30 mg Documented by: Latanoprost (Latanoprost 0.005%) 1 drops OU QHS [facility] Last Admin: 06/22/19 21:41 Dose: 1 drops Documented by: Morphine Sulfate (Morphine) 4 mg IV Q4H PRN PRN Reason: Pain , Severe (7-10) Last Admin: 06/22/19 16:10 Dose: 2 mg Documented by: Morphine Sulfate (Morphine) 2 mg IV Q4H PRN PRN Reason: Pain, Moderate (4-6) Last Admin: 06/23/19 00:30 Dose: 2 mg Documented by: Ondansetron HCl (Zofran) 4 mg IV Q6HR PRN PRN Reason: Nausea And Vomiting Last Admin: 06/22/19 15:27 Dose: 4 mg Documented by: - Physical exam Breasts: deferred Heart: Regular rate Extremities: no ischemia, normal temperature (left AKA stump is warm, no new hematoma, nontender) - Hospital course Hospital course: Patient admitted and taken to the research lab assistant for: Date of Procedure: 06/22/2019 Pre-operative Diagnosis: History of Thrombosis of Left Iliac Arteries with Left Above-Knee Amputation Stump Pain Post-operative Diagnosis: Same Procedure(s): 1. Ultrasound-Guided Access Right Common Femoral Artery 2. Diagnostic Aortogram with Left Lower Extremity Arteriogram (Patient Presented with a Clinical Change) 3. Stenting of Left Common Iliac Artery with 8 x 5 cm Viabahn Stent Graft 2 4. Angioplasty of Left Hypogastric Artery with 5 x 80 IN.Pact Drug-Coated Balloon 5. Thrombolysis of Left Hypogastric Artery with 106 x 12 EKOS Thrombolysis Catheter 6. Radiologic Supervision with Interpretation Surgeon: John Trivedi M.D. Court Bailiff Or Sheriff: None Anesthesia: Local and IV Sedation EBL: Minimal Counts: Correct Complications: None Condition: Stable Specimen: None Indication: The patient is a 69-year-old female with a history of peripheral vascular disease who has bilateral above-knee amputations with rest pain in the left stump. She had an intervention to improve the flow to her left above-knee amputation however she developed thrombus within the left iliac arteries shortly after the intervention. She returns for a diagnostic arteriogram with possible thrombolysis. She was given the risk, benefits, and alternative procedures and consented to the procedure. Angiographic Findings: The aortogram revealed that the aorta was patent without any evidence of flow- limiting stenosis or thrombus. The left common iliac was patent without significant thrombus. The left external iliac was occluded. The origin of the left hypogastric artery had approximately 90% stenosis. The majority of the branches of the hypogastric artery were thrombosed with a single branch of the hypogastric noted to be patent and this branch provided collateral flow towards the profunda artery however there was thrombus within the branch. After the intervention the origin of the hypogastric artery was patent with less than 10% residual stenosis and the EKOS Thrombolysis Catheter was placed into the hypogastric artery and with the distal tip into the origin of the branch supplying flow into the profunda artery. Description of Procedure: The patient was brought to the research lab assistant and laid in supine position. After a timeout was performed her right groin was prepped and draped in normal sterile fashion. Ultrasound was used to identify the right common femoral artery and confirm patency. Once patency was confirmed the overlying skin and soft tissue was anesthetized with lidocaine. A small stab incision was made and a hemostat was used to bluntly dissect down to the artery under ultrasound. Micropuncture technique was used with ultrasound guidance in the right common femoral artery and a 0.035 J-wire was advanced into the aorta. A 5 Bulgarian sheath was then placed by Seldinger technique. An Omni Flush catheter was advanced into the aorta and aortogram was performed. A Bentson wire was then advanced into the left iliac artery and the left lower extremity arteriogram was performed with the previously described findings.. Multiple catheters and wires were required to eventually get up and over the bifurcation secondary to the angle of the bi furcation and stents previously placed in the left common iliac artery. I eventually was able to advance a stiff 0.035 Glidewire over the bifurcation and in the left common femoral artery. This allowed me to exchange the 5 Bulgarian sheath for a 7 Bulgarian 45 cm destination sheath. After advancing the sheath into the distal left common iliac artery I exchanged the Glidewire for a 0.018 V18 wire. I then covered the previously placed common iliac stents with two 8 x 5 cm Viabahn Stent Grafts. This was done so that her previously placed left common iliac artery to profunda artery bypass graft was not inadvertently lysed open. After placing the stent graft I reinserted a 0.035 crossing catheter and exchanged the V 18 wire for the stiff Glidewire and then readvanced the 7 Bulgarian sheath into the distal common iliac artery. I then used a 5 Bulgarian vertebral catheter and a 0.035 floppy Glidewire to cannulate the stenotic origin of the left hypogastric artery. I advanced the wire and catheter into the distal branch of the hypogastric artery and then exchanged the Glidewire for the Bentson wire. I performed angioplasty of the hypogastric artery with a 5 x 80 IN.Pact Drug-Coated Balloon with a result of less than 10% residual stenosis. I then advanced the EKOS Thrombolysis Catheter into the hypogastric artery with the distal tip slightly into the branch. I removed the Bentson wire and advanced the ultrasound wire into the thrombolysis catheter. I then primed the drug port with 4 mg of TPA, the coolant port with 2000 units of heparin, and the sheath with 3000 units of heparin. The sheath was then secured to the patient with 2-0 Ethilon and the thrombolysis catheter was secured to the sheath with 0 silk. The catheter and sheath were then dressed with sterile dressings. The patient tolerated the procedure well and was transported to the recovery area in stable condition. Unable to tolerate the procedure and likely had severe reperfusion pain requi ring early removal of the catheter. She has done well POD #1 and has no complaint of pain except phantom pain. She is clinically ready for d/c home. - Disposition Condition at discharge: Good Disposition: DC-01 TO HOME OR SELFCARE Short Stay Discharge Plan Activity: no restrictions, other Wound: remove dressing (24 hours) Special Instructions: hold Metformin (24 hours) Follow up with: JOHN TRIVEDI MD [Staff Physician] - 14 Days Prescriptions: Oxycodone HCl/Acetaminophen [Percocet 7.5/325 mg] 1 each PO Q6HR PRN #40 tablet PRN Reason: Pain
--- NOTE | 2019-06-23 11:01 | Progress Note ---
Assessment and Plan s/p left AKA stump revasc No rest pain doing well d/c home today Subjective Date of service: 06/23/19 Interval history: Patient states she is having phantom pain in her left calf but denies any other pain. Objective - Constitutional Vitals: Vital Signs - 12hr 06/23/19 06/23/19 06/23/19 00:00 04:06 04:14 Temperature 99.5 F Pulse Rate 125 H 104 H Respiratory 16 Rate Blood Pressure 95/47 O2 Sat by Pulse 97 Oximetry 06/23/19 06/23/19 08:07 09:02 Temperature 98.8 F Pulse Rate 103 H 87 Respiratory 18 Rate Blood Pressure 129/60 129/60 O2 Sat by Pulse 99 Oximetry General appearance: Present: no acute distress - Neck Neck: supple - Respiratory Respiratory effort: normal - Cardiovascular Rhythm: regular Extremities: no ischemia, normal temperature (left AKA stump is warm, no new hematoma, nontender) - Labs CBC & Chem 7: 06/22/19 13:50 06/22/19 08:30 Labs: Abnormal lab results 06/22/19 06/22/19 06/22/19 Range/Units 13:50 15:03 17:57 Hgb 8.3 L (10.1-14.3) gm/dl Hct 25.1 L (30.3-42.9) % POC Glucose 312 H 293 H (70-105) 06/22/19 06/23/19 Range/Units 20:44 07:48 Hgb (10.1-14.3) gm/dl Hct (30.3-42.9) % POC Glucose 261 H 217 H (70-105) Medications & Allergies - Medications Allergies/Adverse Reactions: Allergies No Known Allergies Allergy (Unverified 06/08/19 14:39) Home Medications: Home Medications Medication Instructions Recorded Confirmed Last Taken Type Aspirin [Adult Low Dose Aspirin EC] 81 mg PO QDAY 04/08/16 06/21/19 06/21/19 History 81 mg Gabapentin 300 mg PO TID 04/08/16 06/21/19 06/21/19 History 300 mg Latanoprost 1 drop OU QHS 04/08/16 06/21/19 06/21/19 History 1 drop glipiZIDE [glipiZIDE XL] 10 mg PO QDAY 04/08/16 06/21/1906/21/19 History 10 mg Losartan [Cozaar] 100 mg PO HS #30 tablet 04/24/16 06/21/19 06/21/19 Rx 100 mg Atorvastatin Calcium [Lipitor] 80 mg PO QHS 06/08/19 06/21/19 06/21/19 History 80 mg Brimonidine 0.15% [Alphagan P 1 drops OU DAILY 06/08/19 06/21/19 06/21/19 History 0.15%] 1 drop Metformin HCl [Metformin HCl ER] 500 mg PO BID 06/08/19 06/21/19 06/21/19 History 500 mg Clopidogrel [Plavix] 75 mg PO QDAY #30 tablet 06/12/19 06/21/19 06/21/19 Rx 75 mg HYDROcodone/APAP 7.5-325 [[place] 1 each PO Q6HR PRN #20 tablet 06/12/19 06/21/19 06/21/19 Rx 7.5-325 mg TAB] 1 tab ISOSORBIDE MONOnitrate [Imdur ER] 30 mg PO QDAY #30 tablet 06/12/19 06/21/19 Rx Apixaban [Eliquis] 5 mg PO DAILY 06/21/19 06/21/19 06/21/19 History 5 mg Active Medications: Generic Name Dose Route Start Last Admin Trade Name Freq PRN Reason Stop Dose Admin Acetaminophen/Hydrocodone Bitart 2 each 06/22/19 11:33 06/22/19 12:55 [place] 5/325 PO 2 each Q6H PRN Administration Pain, Moderate (4-6) Apixaban 5 mg 06/23/19 10:00 Eliquis PO BID [facility] Protocol Aspirin 81 mg 06/23/19 10:00 06/23/19 09:01 Halfprin Ec PO 81 mg QDAY TIMOTHY Administration Atorvastatin Calcium 80 mg 06/22/19 22:00 06/22/19 21:41 Lipitor PO 80 mg QHS TIMOTHY Administration Brimonidine Tartrate 1 drops 06/23/19 10:00 06/23/19 09:01 Alphagan P 0.15% OU 1 drops DAILY TIMOTHY Administration Clopidogrel Bisulfate 75 mg 06/23/19 10:00 06/23/19 09:01 Plavix PO 75 mg QDAY TIMOTHY Administration Gabapentin 300 mg 06/22/19 20:00 06/23/19 08:35 Gabapentin PO 300 mg TID TIMOTHY Administration Insulin Human Lispro 0 unit 06/22/19 16:30 06/23/19 08:00 Humalog SUB-Q 3 unit ACHS TIMOTHY Administration Protocol Isosorbide Mononitrate 30 mg 06/23/19 10:00 06/23/19 09:02 Imdur PO 30 mg QDAY TIMOTHY Administration Latanoprost 1 drops 06/22/19 22:00 06/22/19 21:41 Latanoprost 0.005% OU 1 drops QHS TIMOTHY Administration Morphine Sulfate 4 mg 06/22/19 11:33 06/22/19 16:10 Morphine IV 2 mg Q4H PRN Administration Pain , Severe (7-10) Morphine Sulfate 2 mg 06/22/19 11:33 06/23/19 00:30 Morphine IV 2 mg Q4H PRN Administration Pain, Moderate (4-6) Ondansetron HCl 4 mg 06/22/19 15:11 06/22/19 15:27 Zofran IV 4 mg Q6HR PRN Administration Nausea And Vomiting
[2019-06-23] MEDS: HYDROcodone/ACETAMINOPHEN 5-325 MG TAB PO PRN (12:44)
[2019-06-23 13:58] VITALS: BP 127/39
== END 2019-06-23 15:07 | disposition home or self-care (01) | DRG 254 ==
LOC: CATHLABREC 07:30 → CC1 11:33 → 4A 14:19
PROVIDERS: ADMIT Surgery Vascular Surgery; ATTEND Surgery Vascular Surgery
PROC: 047 Lower Arteries, Dilation (ICD-10-PCS; principal; 2019-06-22)
PROC: 047D34Z Dilation of Left Common Iliac Artery with Drug-eluting Intraluminal Device, Percutaneous Approach (ICD-10-PCS; 2019-06-22)
PROC: B44LZZZ Ultrasonography of Femoral Artery (ICD-10-PCS; 2019-06-22)
PROC: B41G1ZZ Fluoroscopy of Left Lower Extremity Arteries using Low Osmolar Contrast (ICD-10-PCS; 2019-06-22)
PROC: B41D1ZZ Fluoroscopy of Aorta and Bilateral Lower Extremity Arteries using Low Osmolar Contrast (ICD-10-PCS; 2019-06-22)
PROC: 3E05317 Introduction of Other Thrombolytic into Peripheral Artery, Percutaneous Approach (ICD-10-PCS; 2019-06-22)
DX: I70.222 Atherosclerosis of native arteries of extremities with rest pain, left leg (principal); T87.89 Other complications of amputation stump; I25.10 Atherosclerotic heart disease of native coronary artery without angina pectoris; I10 Essential (primary) hypertension; Y83.8 Other surgical procedures as the cause of abnormal reaction of the patient, or of later complication, without mention of misadventure at the time of the procedure; E11.51 Type 2 diabetes mellitus with diabetic peripheral angiopathy without gangrene; Z85.3 Personal history of malignant neoplasm of breast; Z98.49 Cataract extraction status, unspecified eye; Z90.11 Acquired absence of right breast and nipple; Z89.612 Acquired absence of left leg above knee; Z89.611 Acquired absence of right leg above knee; Z79.82 Long term (current) use of aspirin; Z79.899 Other long term (current) drug therapy
CPT/HCPCS: 36415; 37211; 37221; 37232; 75625; 75710; 76937; 80048; 82962; 85014; 85018; 85027; 85610; 85730; 86850; 86900; 86901; 96365; 96367; 96374; 96375; G0378; A9270-GY; C1725; C1751; C1757; C1760; C1769; C1874; C1887; C1894; C2623; J1644; J1815; J1885; J2250; J2270; J2405; J2997; J3010; J7030; J7040; Q9967